=== PATIENT | male | born 1955 | race Two or more races ===

== ENCOUNTER 2019-02-21 12:26 | Emergency (ER) | payer OTHER, MEDICAID ==
[~2019-02-21] VITALS: Ht 165.1 cm; Wt 63.5 kg
[~2019-02-21 12:26] MED LIST: FERR-20 PO; KEP500T PO; METF-370 PO
[2019-02-21 13:37] LABS: Basophils # (auto) 0.2 uL; Basophils % (auto) 1.3 % (0.0-2.0); Eosinophils # (auto) 0.2 uL; Hemoglobin 10.8 g/dL (13.5-17.5); Lymphocytes # (auto) 2.3 uL; Monocytes # (auto) 0.7 uL; Neutrophils # (auto) 8.7 uL; Nucleated Red Blood Cells % 0.1 %; Red Cell Distribution Width 18.2 % (11.8-14.3)
[2019-02-21 13:38] LABS: Eosinophils % (auto) 1.3 % (0.0-7.0); Lymphocytes % (auto) 18.9 % (10.0-50.0); Mean Corpuscular Hemoglobin 23.7 pg (28.0-32.0); Mean Corpuscular Hgb Conc. 32.6 g/dL (32.0-36.0); Mean Corpuscular Volume 72.7 fL (80.0-100.0); Monocytes % (auto) 5.6 % (0.0-12.0); Neutrophils % (auto) 72.9 % (37.0-80.0); Red Blood Cells 4.54 10^6/uL (4.5-5.90); White Blood Cell 11.9 10^3/uL (4.4-10.8)
[2019-02-21 13:57] LABS: Albumin 2.8 g/dL (3.4-5.0); Calcium 9.2 mg/dL (8.5-10.1); Potassium 4.4 mmol/L (3.5-5.1)
[2019-02-21 13:59] LABS: INR 0.97 (0.9-1.15); Partial Thromboplastin Time 28.4 sec (23.64-32.05)
[2019-02-21 14:00] LABS: BUN/Creatinine Ratio 27.9; Bilirubin, Total 0.4 mg/dL (0.2-1.0); Total Protein 9.5 g/dL (6.4-8.2)
[2019-02-21 15:00] VITALS: BP 112/54
[2019-02-21 15:02] LABS: Platelet Count (auto) 592 10^3/uL (140-450)
== END 2019-02-21 15:43 | disposition home or self-care (01) ==
LOC: ER 12:31
DX: T82.594A Other mechanical complication of infusion catheter, initial encounter (principal); Z88.0 Allergy status to penicillin; Z79.899 Other long term (current) drug therapy; Z79.84 Long term (current) use of oral hypoglycemic drugs; E11.9 Type 2 diabetes mellitus without complications; I10 Essential (primary) hypertension; Y84.8 Other medical procedures as the cause of abnormal reaction of the patient, or of later complication, without mention of misadventure at the time of the procedure; Y82.8 Other medical devices associated with adverse incidents; Y92.89 Other specified places as the place of occurrence of the external cause
CPT/HCPCS: 36415; 71045; 80053; 85025; 85610; 85730

== ENCOUNTER 2019-11-12 11:52 | Inpatient (IN) | payer OTHER, MEDICAID ==
[~2019-11-12] VITALS: Ht 162.6 cm; Wt 79.4 kg
[2019-11-12] MEDS ORDERED: SODIUM CHLORIDE 0.9% 1,000 ML IV ONE ×2 (12:35)
[2019-11-12] MEDS ORDERED: VANCOMYCIN 1GM/250ML 250 ML IV ONE (12:45)
[2019-11-12 12:46] LABS: Basophils # (auto) 0.2 10 ^3/uL (0-0.2); Basophils % (auto) 1.8 % (0.0-2.0); Eosinophils # (auto) 0.2 10 ^3/uL (0-0.8)
[2019-11-12 12:48] LABS: Eosinophils % (auto) 1.7 % (0.0-7.0); Hematocrit 27.3 % (41.0-53.0); Hemoglobin 8.2 g/dL (13.5-17.5); Lymphocytes # (auto) 1.2 10 ^3/uL (0.4-5.4); Lymphocytes % (auto) 10.3 % (10.0-50.0); Mean Corpuscular Hemoglobin 21.1 pg (28.0-32.0); Mean Corpuscular Hgb Conc. 30.2 g/dL (32.0-36.0); Monocytes # (auto) 0.7 10 ^3/uL (0-1.3); Monocytes % (auto) 6.3 % (0.0-12.0); Neutrophils # (auto) 9.2 10 ^3/uL (1.6-8.6); Neutrophils % (auto) 79.9 % (37.0-80.0); White Blood Cell 11.5 10^3/uL (4.4-10.8)
[2019-11-12 12:50] LABS: Red Cell Distribution Width 21.1 % (11.8-14.3)
[2019-11-12] MEDS ORDERED: IOHEXOL 300 MG/ML 100ML BOTTLE IJ ONE (12:50)
[2019-11-12 12:52] LABS: Urine Bacteria NONE SEEN /hpf (None Seen); Urine Blood 1+ /uL (Negative); Urine Specific Gravity 1.018 (1.001-1.035); Urine WBC 1040 /hpf (0 - 3); Urine WBC Clumps PRESENT /hpf (None Seen)
[2019-11-12 12:54] LABS: Platelet Count (auto) 777 10^3/uL (140-450)
[2019-11-12 13:01] LABS: INR 1.12 (0.9-1.15); Partial Thromboplastin Time 30.1 sec (23.64-32.05)
[2019-11-12 13:04] LABS: Chloride 107 mmol/L (98-107); Potassium 4.6 mmol/L (3.5-5.1); Sodium 136 mmol/L (136-145)
[2019-11-12 13:13] LABS: Alanine Aminotransferase 12 U/L (16-61); Albumin 2.2 g/dL (3.4-5.0); Alkaline Phosphatase 120 U/L (45-117); Anion Gap 8 (5-15); Aspartate Aminotransferase 12 U/L (15-37); BUN/Creatinine Ratio 17.5; Bilirubin, Total 0.3 mg/dL (0.2-1.0); Blood Urea Nitrogen 17 mg/dL (7-18); Calcium 8.6 mg/dL (8.5-10.1); Carbon Dioxide 21 mmol/L (21-32); GFR African American 100 mL/min; GFR Non-African American 83 mL/min; Glucose 151 mg/dL (74-106); Total Protein 8.6 g/dL (6.4-8.2)
[2019-11-12 13:49] LABS: Lactic Acid w/Reflex 2.8 mmol/L (0.4-2.0)
[2019-11-12] MEDS ORDERED: MORPHINE SULF INJ 2 MG/ML SYRINGE 1ML IV PRN ×3 (14:15→14:45)
[2019-11-12] MEDS ORDERED: NITROGLYCERIN 0.4 MG SL TAB SL PRN ×2 (14:15→14:45)
[2019-11-12] MEDS ORDERED: ONDANSETRON HCL 4 MG/2 ML VIAL IV PRN (14:45)
[2019-11-12] MEDS ORDERED: DOCUSATE SOD 100 MG CAP PO PRN (14:45)
[2019-11-12] MEDS ORDERED: ALUM & MAG HYDROX-SIMETH LIQ(MAALOX) 30 ML PO PRN (14:45)
[2019-11-12] MEDS ORDERED: TEMAZEPAM 15 MG CAP PO PRN (14:45)
[2019-11-12] MEDS ORDERED: HYDROcodone-ACET 5/325MG TAB PO PRN (14:45)
[2019-11-12] MEDS ORDERED: VANCOMYCIN PER PHARMACY 0 MG IV SCH (14:45)
[2019-11-12] MEDS ORDERED: DEXTROSE (50%) 50ML SYRG IV PRN (15:00)
[2019-11-12] MEDS ORDERED: FAMOTIDINE 20 MG TAB PO ONE (15:15)
--- NOTE | 2019-11-12 15:20 | NUR ---
Telemetry admit from ER BATSHEVA GARCÍA admitted to Telemetry unit after SBAR received. Patient oriented to Hue Lind RN, unit, room, bed, and unit policies regarding patient care and visiting hours. Patient now on continuous telemetry monitoring, tele box # 26 and telemetry reading on arrival to unit is 81 SR. Patient placed on standby bedside oxygen if needed, weighed by bed scale and encouraged to call if he needs something. All questions and concerns addressed, patient verbalized understanding. Note: Patient is paraplegic, oriented x4, unable to move right upper extremity, came in with colostomy, came in with suprapubic catheter. Patient has extensive ulcer/wounds on his sacral and buttocks area. Left knee with wound, bilateral lower extremities wrapped with gauze (done at ER). Patient has his own wheelchair from home. Patient stated he's unable to get up by himself, his [id number]-[id number]-bez helps him at home.
[2019-11-12 15:30] VITALS: BP 136/71
[2019-11-12] MEDS: SODIUM CHLORIDE 0.9% 1,000 ML IV SCH (15:30)
--- NOTE | 2019-11-12 15:47 | NUR ---
AIR MATTRESS: Air mattress ordered at [facility],Reference # [id number]; ETA 11/12/19 @5200, Call [facility] if need to follow up at [phone] Addendum: 11/12/19 at 1548 by Dea Decker RN Amended: Links added.
--- NOTE | 2019-11-12 16:00 | NUR ---
Photos taken of the sacral/buttock area, left knee. Wound culture swab done. Specimen sent to Laboratory.
--- NOTE | 2019-11-12 16:30 | NUR ---
Qamar Feliz and I transferred the patient to the bed with specialty mattress.
[2019-11-12 16:45] VITALS: BP 136/71
[2019-11-12] MEDS: InsuLIN REG 1unit/0.01ml Soln (100units/ml) SC SCH ×2 (17:00→22:00)
--- NOTE | 2019-11-12 17:20 | NUR ---
Gkryxzfg-oq-bwv Tracey ([phone]; Password: "Douglas") called. Son Rene ([phone]).
[2019-11-12] MEDS: FERROUS SULFATE 325 MG TAB PO SCH (17:43)
[2019-11-12] MEDS: ACCU-CHEK COMFORT CURVE STRIP VI SCH ×2 (17:44→22:29)
[2019-11-12] MEDS: MEROPENEM 1GM IVPB 100 ML IV SCH (17:49)
[2019-11-12] MEDS: FAMOTIDINE 20 MG TAB PO SCH (21:33)
[2019-11-12] MEDS: levETIRAcetam 500 MG TAB PO SCH (21:34)
[2019-11-12 21:51] VITALS: BP 109/51
[2019-11-13] VITALS (8 sets, daily range): BP systolic 92–123; BP diastolic 50–63
--- NOTE | 2019-11-13 00:26 | NUR ---
11/12/20191929. PATIENT SEEN ON RECEIVING REPORT. WAS AWAKE ANMD ALERT AND DENIED PAIN. SUPRAPUBIC ANDERS CATHETER IN PLACE WITH 200 ML YELLOW URINE IN BAG HANGING BELOW FREELY. COLOSTOMY BAG TO THE LEFT FLANK WAS NOTED WITH BROWN LIQUID STOOL. DRESSING CLEAR AND DRY. MULTIPLE SKIN DRESSINGS TO BOTH LEGS , FEET AND SACRAL AREA DRY AND INTACT. IV FLUID INFUSING WELL. IV SITE CLEAR AND DRY.
[2019-11-13] MEDS: SODIUM CHLORIDE 0.9% 1,000 ML IV SCH ×3 (00:53→21:47)
[2019-11-13] MEDS: MEROPENEM 1GM IVPB 100 ML IV SCH ×4 (02:23→18:55)
--- NOTE | 2019-11-13 02:52 | NUR ---
PATIENT SLEEPING AT THIS TIME.
[2019-11-13 05:48] LABS: Hematocrit 21.9 % (41.0-53.0); Mean Corpuscular Hemoglobin 22.1 pg (28.0-32.0); Mean Corpuscular Hgb Conc. 32.1 g/dL (32.0-36.0); Platelet Count (auto) 674 10^3/uL (140-450); Red Blood Cells 3.17 10^6/uL (4.5-5.90); White Blood Cell 7.3 10^3/uL (4.4-10.8)
[2019-11-13] MEDS: VANCOMYCIN 1GM/250ML 250 ML IV SCH ×2 (05:50→23:30)
[2019-11-13 05:53] LABS: Band Neutrophils % (manual) 0; Basophils % (manual) 0 (0.0-2.0); Blast Cells 0; Metamyelocytes % 0; Myelocytes % 0; Promyelocytes % 0; Reactive Lymphocytes 0
[2019-11-13 06:00] LABS: % Iron Saturation 9.5 % (20-55)
[2019-11-13 06:04] LABS: INR 1.16 (0.9-1.15); Partial Thromboplastin Time 29.9 sec (23.64-32.05)
[2019-11-13 06:13] LABS: Cholesterol 109 mg/dL (< 200); HDL Cholesterol 29 mg/dL (40-59); LDL Cholesterol 68 mg/dL (< 100); Triglycerides 87 mg/dL (< 150)
[2019-11-13 06:21] LABS: Albumin 1.9 g/dL (3.4-5.0); BUN/Creatinine Ratio 18.7; Bilirubin, Total 0.3 mg/dL (0.2-1.0); CRP High Sensitivity 9.8 mg/dL (< 0.3); Calcium 8.3 mg/dL (8.5-10.1); Magnesium 1.6 mg/dL (1.6-2.6); Phosphorus 2.6 mg/dL (2.5-4.90); Total Protein 7.3 g/dL (6.4-8.2)
[2019-11-13] MEDS: ACCU-CHEK COMFORT CURVE STRIP VI SCH ×4 (06:27→21:48)
[2019-11-13] MEDS: InsuLIN REG 1unit/0.01ml Soln (100units/ml) SC SCH ×4 (06:28→22:03)
[2019-11-13 06:29] LABS: Eosinophils % (manual) 1 (0-7); Lymphocytes % (manual) 20 (10.0-50.0); Monocytes % (manual) 5 (0-12)
--- NOTE | 2019-11-13 07:07 | NUR ---
0553. CRITICAL LAB CALLED NEHA GARCÍA FROM THE LAB. HEMOGLOBIN 7.0
--- NOTE | 2019-11-13 07:10 | NUR ---
0625. DR LUCERO CALLED BACK. ORDERED TO REPEAT HEMOGLOBIN IN 6 HOURS.
--- NOTE | 2019-11-13 08:30 | NUR ---
Patient in bed, awake, oriented x4. No acute distress noted. With suprapubic catheter, colostomy.
[2019-11-13] MEDS: ENOXAPARIN SOD 40 MG/0.4 ML SYRINGE SC SCH (09:07)
[2019-11-13] MEDS: FAMOTIDINE 20 MG TAB PO SCH ×2 (09:11→21:48)
[2019-11-13] MEDS: FERROUS SULFATE 325 MG TAB PO SCH ×2 (09:11→18:25)
[2019-11-13] MEDS: levETIRAcetam 500 MG TAB PO SCH ×2 (09:12→21:47)
--- NOTE | 2019-11-13 09:22 | NUR ---
Hgb = 7.0*L. Fito held. Will inform the MD.
--- NOTE | 2019-11-13 10:00 | NUR ---
Dr. Rios at bedside. MD is aware of the critically low Hemoglobin level. Dr. Rios spoke with the patient. Wound care nurse Rashmi to see the patient today.
--- NOTE | 2019-11-13 11:00 | NUR ---
WOUND CARE NOTE: IN TO SEE PATIENT AT THIS TIME PER WOUND CARE CONSULT REQUEST. PATIENT WAS ADMITTED TO [facility] WITH DIAGNOSIS OF SEPSIS, UTI, PNA. CURRENT PINKY SCORE IS ASSESSED AT 10. PATIENT NOTED UPON PRESENTATION TO THE ER TO HAVE MULTIPLE WOUNDS. WOUND PHOTOS TAKEN WHILE PATIENT IN ER, UPON ADMIT BY BEDSIDE NURSE, AND AGAIN AT THIS TIME FOR REFERENCE. HE IS CURRENTLY RESTING ON SPECIALTY AIR BED PER PROTOCOL. 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 HE ALSO HAS SCARS NOTED TO LEFT KNEE AND LEFT HEEL. SCARS WERE LEFT OPEN TO AIR. CLEANSED ALL OPEN WOUNDS WITH WOUND CLEANSER, PATTED DRY WITH STERILE GAUZE. APPLIED THERAHONEY INTO ALL OPEN WOUND BED AREAS. PACKED ALGINATE IN ALL WOUND CAVITIES, COVERED WITH OPTIFOAM GENTLE DRESSINGS. ALL WOUND STATS CAN BE FOUND WITHIN WOUND ASSESSMENT LINKED TO THIS NOTE. OF NOTE, WOUND CULTURES WERE TAKEN UPON ADMIT, SENT OFF TO LAB FOR PROCESSING. HE HAS RECEIVED WOUND CARE IN THE PAST AT [facility]. RECOMMEND: FREQUENT TURN SCHEDULE Q 2 HOURS, PRN CONDITION PERMITS, WITH PRESSURE REDISTRIBUTION USING PILLOWS/WEDGES, SPECIALTY AIR BED, SURGICAL CONSULT, DIETARY CONSULT, DAILY/PRN DRESSING CHANGES, SKIN/WOUND CARE PLAN, CONTINUED MONITORING BY WOUND CARE TEAM. Addendum: 11/13/19 at 1714 by Mary Beth Millan RN Amended: Links added.
--- NOTE | 2019-11-13 11:10 | NUR ---
Downgraded to Med-Surg as ordered. Tele pack sent back to ICU.
[2019-11-13 13:39] LABS: Basophils # (auto) 0.1 10 ^3/uL (0-0.2); Eosinophils # (auto) 0.2 10 ^3/uL (0-0.8); Lymphocytes % (auto) 12.8 % (10.0-50.0)
[2019-11-13 13:40] LABS: Basophils % (auto) 1.4 % (0.0-2.0); Hematocrit 21.2 % (41.0-53.0); Mean Corpuscular Volume 68.8 fL (80.0-100.0); Monocytes # (auto) 0.6 10 ^3/uL (0-1.3); Monocytes % (auto) 7.9 % (0.0-12.0); Neutrophils % (auto) 74.9 % (37.0-80.0); Nucleated Red Blood Cells % 0.1 %; Platelet Count (auto) 639 10^3/uL (140-450); Red Blood Cells 3.08 10^6/uL (4.5-5.90)
[2019-11-13 13:47] LABS: Red Cell Distribution Width 20.9 % (11.8-14.3)
[2019-11-13 13:50] LABS: Hemoglobin 6.8 g/dL (13.5-17.5)
--- NOTE | 2019-11-13 14:00 | NUR ---
Hgb = 6.8*L. Dr. Rios ordered one unit of packed RBCs.
--- NOTE | 2019-11-13 17:10 | NUR ---
BP = 100/50, Heart rate = 89, RR = 16, Temp = 97.3 F, O2 Sat = 94% on room air.
--- NOTE | 2019-11-13 17:16 | NUR ---
Started one unit or packed RBCs as ordered.
--- NOTE | 2019-11-13 17:25 | NUR ---
T = 97.6 F, BP = 105/67, Heart rate = 82, RR = 17, O2 Sat = 95% on room air. No blood transfusion reaction noted.
--- NOTE | 2019-11-13 18:15 | NUR ---
Called Pharmacy that Meropenem is not available.
--- NOTE | 2019-11-13 19:00 | NUR ---
Blood transfusion still ongoing at this time.
--- NOTE | 2019-11-13 19:20 | NUR ---
Report given to operation shift supervisor JAKOB Nunn that one unit of packed RBCs still transfusing at this time. JAKOB Nunn to note the time the transfusion ended and note if there's a blood transfusion reaction.
--- NOTE | 2019-11-13 19:30 | NUR ---
Called Pharmacy again that Meropenem IV is not available. JAKOB Nunn went to [facility], medication not sent by the Pharmacy.
--- NOTE | 2019-11-13 19:33 | NUR ---
PATIENT ON BLOOD TRANSFUSION OVER THE PAST 2 HOURS 15 MINUTES. PATIENT IS TOLERATION THE TRANSFUSION. VITAL SIGNS AT 1900 WITHIN NORMAL LIMITS.
--- NOTE | 2019-11-13 20:23 | NUR ---
0-11/13/2019. 2004. BLOOD TRANSFUSION COMPLETED AT THIS TIME. NO TRANSFUSION REACTION NOTED.
[2019-11-14] VITALS (7 sets, daily range): BP systolic 111–136; BP diastolic 53–64
[2019-11-14] MEDS: MEROPENEM 1GM IVPB 100 ML IV SCH ×3 (01:50→20:29)
--- NOTE | 2019-11-14 06:12 | NUR ---
0540. COLOSTOMY BAG EMPTIED. BED BATH GIVEN. LINENS CHANGED.
[2019-11-14] MEDS: InsuLIN REG 1unit/0.01ml Soln (100units/ml) SC SCH ×4 (06:31→22:00)
[2019-11-14] MEDS: ACCU-CHEK COMFORT CURVE STRIP VI SCH ×4 (06:31→22:01)
[2019-11-14] MEDS: SODIUM CHLORIDE 0.9% 1,000 ML IV SCH (06:33)
[2019-11-14 06:44] LABS: Basophils # (auto) 0.1 10 ^3/uL (0-0.2); Hematocrit 26.9 % (41.0-53.0); Hemoglobin 8.6 g/dL (13.5-17.5); Lymphocytes # (auto) 0.9 10 ^3/uL (0.4-5.4); Monocytes # (auto) 0.7 10 ^3/uL (0-1.3)
[2019-11-14 06:47] LABS: Basophils % (auto) 1.5 % (0.0-2.0); Eosinophils # (auto) 0.2 10 ^3/uL (0-0.8); Eosinophils % (auto) 3.5 % (0.0-7.0); Lymphocytes % (auto) 13.3 % (10.0-50.0); Mean Corpuscular Hemoglobin 23.2 pg (28.0-32.0); Mean Corpuscular Hgb Conc. 32.2 g/dL (32.0-36.0); Mean Corpuscular Volume 72.1 fL (80.0-100.0); Monocytes % (auto) 10.4 % (0.0-12.0); Neutrophils # (auto) 4.7 10 ^3/uL (1.6-8.6); Neutrophils % (auto) 71.3 % (37.0-80.0); Nucleated Red Blood Cells % 0.2 %; Platelet Count (auto) 623 10^3/uL (140-450); Red Blood Cells 3.73 10^6/uL (4.5-5.90); White Blood Cell 6.6 10^3/uL (4.4-10.8)
[2019-11-14 06:50] LABS: Red Cell Distribution Width 23.1 % (11.8-14.3)
[2019-11-14 07:04] LABS: Potassium 3.7 mmol/L (3.5-5.1)
[2019-11-14] MEDS: FAMOTIDINE 20 MG TAB PO SCH ×2 (09:36→22:00)
[2019-11-14] MEDS: FERROUS SULFATE 325 MG TAB PO SCH ×2 (09:36→18:25)
[2019-11-14] MEDS: levETIRAcetam 500 MG TAB PO SCH ×2 (09:36→22:00)
[2019-11-14] MEDS: ENOXAPARIN SOD 40 MG/0.4 ML SYRINGE SC SCH (09:37)
--- NOTE | 2019-11-14 14:21 | NUR ---
PICC line placement Patient educated on need for PICC line placement. All risks and benefits explained and all questions and concerns addressed prior to procedure. Noted past medical history and allergies with no contraindications. INR and Plt counts within acceptable range. 4 fr PICC line inserted via right basilic vein using [employer] [employer] US and Tip Location System. Sterile technique with maximum barrier precautions utilized. Blood return obtained from lumen and flushed easily with NS using proper technique. PICC secured with Stat-lock; biodisc and occlusive dressing applied. Stat portable chest x-ray obtained for PICC tip placement. *Baseline Arm Circumference 23cm. Internal length 40 cm. External length 0. PICC lot #[id number]
[2019-11-14] MEDS ORDERED: LIDOCAINE 1% (LOCAL ANESTH.) PF 5ml SDV ID ONE (14:30)
--- NOTE | 2019-11-14 14:40 | NUR ---
Okay to use PICC line Xray completed and reviewed. Okay to use PICC line. Nathaniel ROBERT notified.
[2019-11-14] MEDS: VANCOMYCIN 1GM/250ML 250 ML IV SCH (17:56)
--- NOTE | 2019-11-14 19:35 | NUR ---
Opening Shift Note Assumed care of patient, awake and alert x4. No S/S of distress/SOB or pain. Call light is within reach, side rails up x2, bed is in the lowest position. Suprapubic catheter in place and draining yellow urine. Colostomy bag to the LUQ. Dressings to the sacrum and bilateral lower extremities are C/D/I. Instructed on POC and to call for assist PRN, will continue to monitor for changes Q1hr and PRN.
[2019-11-14] MEDS: SODIUM CHLOR 0.9% PF (SALINE LOCK) 10ML VIAL/SYR IV SCH (22:01)
--- NOTE | 2019-11-14 22:06 | NUR ---
2200 INSULIN REFUSAL Patient's blood sugar was 133, he stated that his blood sugar will drop at night and he does not need the 2 units of insulin for 2200. Will continue to monitor.
[2019-11-15] MEDS: MEROPENEM 1GM IVPB 100 ML IV SCH ×3 (01:58→18:25)
[2019-11-15 05:00] VITALS: BP 116/60
[2019-11-15] MEDS: InsuLIN REG 1unit/0.01ml Soln (100units/ml) SC SCH ×2 (06:33→22:00)
[2019-11-15] MEDS: ACCU-CHEK COMFORT CURVE STRIP VI SCH (06:34)
--- NOTE | 2019-11-15 06:39 | NUR ---
Colostomy bag emptied, patient repositioned for comfort, fall precautions are in place, call light is within reach.
--- NOTE | 2019-11-15 08:10 | NUR ---
Patient in bed, awake, no acute distress noted. On Suprapubic catheter draining clear, yellowish urine. On Colostomy bag. On specialty mattress.
[2019-11-15] MEDS: FERROUS SULFATE 325 MG TAB PO SCH ×2 (08:13→18:25)
[2019-11-15 09:00] VITALS: BP 116/58
[2019-11-15] MEDS: ENOXAPARIN SOD 40 MG/0.4 ML SYRINGE SC SCH (10:24)
[2019-11-15] MEDS: levETIRAcetam 500 MG TAB PO SCH ×2 (10:24→22:01)
[2019-11-15] MEDS: FAMOTIDINE 20 MG TAB PO SCH ×2 (10:24→22:01)
[2019-11-15] MEDS: SODIUM CHLOR 0.9% PF (SALINE LOCK) 10ML VIAL/SYR IV SCH ×2 (10:25→22:04)
[2019-11-15] MEDS: VANCOMYCIN 1GM/250ML 250 ML IV SCH (11:24)
--- NOTE | 2019-11-15 11:25 | NUR ---
PREM Lynch and I repositioned the patient.
--- NOTE | 2019-11-15 11:30 | NUR ---
Emptied the Colostomy pouch. Large amount of soft, brownish/greenish stools collected.
[2019-11-15 13:00] VITALS: BP 111/61
--- NOTE | 2019-11-15 14:15 | NUR ---
Nutrition Assessment Notes Please refer to link for full assessment notes. Est Energy needs: 5776-1285 kcals (17-20 kcal/kgBW) Est Protein needs: 97-121 gms/day (1.2-1.5 gm/kgBW) d/t pt wounds Will continue to monitor and reassess prn. Addendum: 11/15/19 at [address] Amended: Links added.
--- NOTE | 2019-11-15 14:53 | NUR ---
assessment Patient is a 64 year old male who is alert and oriented. Prior to admission patient lived home with family and needed assistance. 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 Per patient he has a wheelchair and hospital bed for home use. Patient is on service with [facility]. Patient will need a resumption order on discharge. Patient has no safety concerns regarding returning home on discharge. I informed patient he has a right to speak to a vp digital marketing social media and crm regarding all care. I informed patient he has a right to participate in any and all discharge planning. Patient has a POA and advanced directive. Patient verbalized understanding and agreed to discharge plan. Addendum: 11/15/19 at 1501 by Gladys WARNER Amended: Links added.
[2019-11-15 17:00] VITALS: BP 118/62
--- NOTE | 2019-11-15 17:00 | NUR ---
Patient denies pain.
--- NOTE | 2019-11-15 18:10 | NUR ---
Patient eating dinner at this time.
--- NOTE | 2019-11-15 19:20 | NUR ---
Opening Shift Note Received report from Hue ROBERT. Assumed care of patient, awake and alert. No S/S of distress/SOB or pain. Instructed on POC and to call for assist PRN. Fall precaution measures in place, will continue to monitor for changes Q1hr and PRN.
[2019-11-15 22:00] VITALS: BP 130/58
--- NOTE | 2019-11-16 02:00 | NUR ---
Emptied the Colostomy pouch with moderate amount of soft, brownish/greenish stools collected.
[2019-11-16] MEDS: MEROPENEM 1GM IVPB 100 ML IV SCH ×2 (02:30→10:01)
[2019-11-16 05:00] VITALS: BP 135/68
[2019-11-16] MEDS: VANCOMYCIN 1GM/250ML 250 ML IV SCH (05:46)
--- NOTE | 2019-11-16 07:45 | NUR ---
Patient in bed, awake, oriented x4, no acute distress noted. On Colostomy. On Delgado catheter. On specialty mattress.
[2019-11-16] MEDS: FERROUS SULFATE 325 MG TAB PO SCH ×2 (08:40→17:07)
[2019-11-16 09:00] VITALS: BP 106/58
--- NOTE | 2019-11-16 09:40 | NUR ---
Changed the Opti foam wound dressing on the sacral, hip, buttock areas, bilateral lower legs. Cleaned the wounds with wound spray, pat dry with gauze, applied Opti foam with Thera honey. Patient able to tolerate it. PREM Lynch and I repositioned the patient.
[2019-11-16] MEDS: ENOXAPARIN SOD 40 MG/0.4 ML SYRINGE SC SCH (10:01)
[2019-11-16] MEDS: FAMOTIDINE 20 MG TAB PO SCH ×2 (10:01→21:21)
[2019-11-16] MEDS: SODIUM CHLOR 0.9% PF (SALINE LOCK) 10ML VIAL/SYR IV SCH ×2 (10:01→21:40)
[2019-11-16] MEDS: levETIRAcetam 500 MG TAB PO SCH ×2 (10:04→21:22)
[2019-11-16 13:00] VITALS: BP 120/59
--- NOTE | 2019-11-16 14:20 | NUR ---
Nutrition Assessment Notes Please refer to link for full assessment notes. Est Energy needs: 4676-0723 kcals (17-20 kcal/kgBW) Est Protein needs: 64-71 gms/day (1.0-1.1 gm/kgBW) Will continue to monitor and reassess prn. Addendum: 11/16/19 at [address] Amended: Links added.
--- NOTE | 2019-11-16 15:00 | NUR ---
Pharmacist to call Dr. Trinh regarding Meropenem IV.
[2019-11-16] MEDS: cefTAZidime 2GM/NS 50 ML IV SCH ×2 (15:53→21:21)
[2019-11-16 17:00] VITALS: BP 125/50
--- NOTE | 2019-11-16 19:25 | NUR ---
Opening Shift Note Assumed care of patient, AOx4. Fall and safety precautions in place. Call light within reach and able to use. No S/S of distress/SOB or pain. Instructed on POC and to call for assist PRN, patient verbalized understanding and in agreement. Will continue to monitor for changes Q1hr and PRN.
[2019-11-16] MEDS: InsuLIN REG 1unit/0.01ml Soln (100units/ml) SC SCH (21:40)
[2019-11-16 21:52] VITALS: BP 117/53
[2019-11-17] MEDS: VANCOMYCIN 1GM/250ML 250 ML IV SCH (00:16)
[2019-11-17 05:00] VITALS: BP 106/61
[2019-11-17] MEDS: cefTAZidime 2GM/NS 50 ML IV SCH ×3 (05:26→21:41)
[2019-11-17 06:32] LABS: Basophils # (auto) 0.1 10 ^3/uL (0-0.2); Basophils % (auto) 1.6 % (0.0-2.0); Eosinophils # (auto) 0.3 10 ^3/uL (0-0.8); Eosinophils % (auto) 5.4 % (0.0-7.0); Hematocrit 26.3 % (41.0-53.0); Hemoglobin 8.9 g/dL (13.5-17.5); Lymphocytes # (auto) 1.2 10 ^3/uL (0.4-5.4); Lymphocytes % (auto) 22.6 % (10.0-50.0); Mean Corpuscular Hemoglobin 24.1 pg (28.0-32.0); Mean Corpuscular Hgb Conc. 33.6 g/dL (32.0-36.0); Mean Corpuscular Volume 71.7 fL (80.0-100.0); Monocytes # (auto) 0.5 10 ^3/uL (0-1.3); Monocytes % (auto) 8.9 % (0.0-12.0); Neutrophils # (auto) 3.4 10 ^3/uL (1.6-8.6); Neutrophils % (auto) 61.5 % (37.0-80.0); Nucleated Red Blood Cells % 0.2 %; Platelet Count (auto) 595 10^3/uL (140-450); Red Blood Cells 3.67 10^6/uL (4.5-5.90); White Blood Cell 5.5 10^3/uL (4.4-10.8)
[2019-11-17 06:33] LABS: Red Cell Distribution Width 22.9 % (11.8-14.3)
[2019-11-17 06:51] LABS: Calcium 8.3 mg/dL (8.5-10.1); Magnesium 1.9 mg/dL (1.6-2.6); Potassium 3.9 mmol/L (3.5-5.1)
[2019-11-17 06:55] LABS: Bilirubin, Total 0.3 mg/dL (0.2-1.0); Total Protein 7.3 g/dL (6.4-8.2)
--- NOTE | 2019-11-17 07:58 | NUR ---
Patient eating breakfast at this time.
[2019-11-17] MEDS: FERROUS SULFATE 325 MG TAB PO SCH ×2 (07:59→17:53)
[2019-11-17 08:15] VITALS: BP 114/58
[2019-11-17] MEDS: SODIUM CHLOR 0.9% PF (SALINE LOCK) 10ML VIAL/SYR IV SCH ×2 (10:24→21:41)
[2019-11-17] MEDS: levETIRAcetam 500 MG TAB PO SCH ×2 (10:25→21:41)
[2019-11-17] MEDS: FAMOTIDINE 20 MG TAB PO SCH ×2 (10:25→21:40)
[2019-11-17] MEDS: ENOXAPARIN SOD 40 MG/0.4 ML SYRINGE SC SCH (10:25)
--- NOTE | 2019-11-17 10:56 | NUR ---
Dr. Ziggy I. at bedside.
[2019-11-17 12:30] VITALS: BP 125/58
--- NOTE | 2019-11-17 14:10 | NUR ---
Called Pharmacy that Fortaz IV is not yet received.
--- NOTE | 2019-11-17 14:18 | NUR ---
Dr. Trinh made aware that patient has Bedtime sliding scale for Insulin but no order for Accu check. ordered Accu check.
[2019-11-17 17:17] VITALS: BP 120/63
--- NOTE | 2019-11-17 19:30 | NUR ---
Opening Shift Note Assumed care of patient, AOx4. Fall, seizure, and safety precautions in place. No S/S of distress/SOB or pain. Call light within reach and able to use. Instructed on POC and to call for assist PRN, patient verbalized understanding and in agreement. Will continue to monitor for changes Q1hr and PRN.
[2019-11-17] MEDS: ACCU-CHEK COMFORT CURVE STRIP VI SCH (21:41)
[2019-11-17 22:00] VITALS: BP 121/59
[2019-11-17] MEDS: InsuLIN REG 1unit/0.01ml Soln (100units/ml) SC SCH (22:11)
[2019-11-18] MEDS: cefTAZidime 2GM/NS 50 ML IV SCH (05:38)
[2019-11-18 06:00] VITALS: BP 115/66
[2019-11-18] MEDS: FAMOTIDINE 20 MG TAB PO SCH ×2 (07:58→21:11)
[2019-11-18] MEDS: FERROUS SULFATE 325 MG TAB PO SCH ×2 (07:58→18:00)
[2019-11-18] MEDS: SODIUM CHLOR 0.9% PF (SALINE LOCK) 10ML VIAL/SYR IV SCH ×2 (07:59→21:10)
[2019-11-18] MEDS: levETIRAcetam 500 MG TAB PO SCH ×2 (07:59→21:11)
[2019-11-18] MEDS: ENOXAPARIN SOD 40 MG/0.4 ML SYRINGE SC SCH (08:00)
--- NOTE | 2019-11-18 10:48 | NUR ---
Dr. Melendrez at bed side to see pt, doctor discussed the plan of care with pt.
[2019-11-18] MEDS ORDERED: cefTRIAXone 1GM/50ML D5W 50 ML IV ONE (11:00)
[2019-11-18 13:00] VITALS: BP 123/67
[2019-11-18] MEDS ORDERED: CIPROFLOXACIN 400MG/200ML 200 ML IV SCH (14:00)
--- NOTE | 2019-11-18 14:00 | NUR ---
Dressing change cleaned wounds to lt and rt hip, lt and rt ischium, sacrum, with wound cleanser, applied thera-honey, packed with algenate dressing, cpvered with optifoam dressing, lt and rt lateral lower legs wounds cleaned with wound cleanser, applied thera-honey and covered with optifoam and secured with kerlix. lt lateral ankle wound cleaned with wound cleanser, applied thera-honey, covered with optifoam dressing.
[2019-11-18 17:00] VITALS: BP 131/72
--- NOTE | 2019-11-18 20:00 | NUR ---
Received pt resting in bed, call light within reach, pt turned and reposition, pt denies any pain or discomfort at this time, will continue to monitor pt.
[2019-11-18] MEDS: CIPROFLOXACIN HCL 500 MG TAB PO SCH (21:11)
[2019-11-18] MEDS: InsuLIN REG 1unit/0.01ml Soln (100units/ml) SC SCH (21:12)
[2019-11-18] MEDS: ACCU-CHEK COMFORT CURVE STRIP VI SCH (21:12)
[2019-11-18 22:00] VITALS: BP 131/59
[2019-11-19 05:00] VITALS: BP 117/58
[2019-11-19 08:00] VITALS: BP 127/69
--- NOTE | 2019-11-19 08:43 | NUR ---
I faxed home IV ATB order to [facility].
[2019-11-19 09:00] VITALS: BP 127/69
[2019-11-19] MEDS ORDERED: cefTRIAXone 1GM/50ML D5W 50 ML IV SCH (09:00)
[2019-11-19] MEDS: CIPROFLOXACIN HCL 500 MG TAB PO SCH (09:44)
[2019-11-19] MEDS: FERROUS SULFATE 325 MG TAB PO SCH (09:44)
[2019-11-19] MEDS: FAMOTIDINE 20 MG TAB PO SCH (09:44)
[2019-11-19] MEDS: SODIUM CHLOR 0.9% PF (SALINE LOCK) 10ML VIAL/SYR IV SCH (09:45)
[2019-11-19] MEDS: levETIRAcetam 500 MG TAB PO SCH (09:45)
[2019-11-19] MEDS: ENOXAPARIN SOD 40 MG/0.4 ML SYRINGE SC SCH (09:47)
--- NOTE | 2019-11-19 11:02 | NUR ---
D/C Planning Per Social Service consult for home health IV abx withh IV Rocephin 1gm daily for 4 weeks and wound care. Patient stated his daughter in [place] who is also his caregiver can assist with IV abx. Patient is on service with [facility]. Informed patient Diabetes Manager Denisha will be faxing clinical information to [facility]. Faxed clinical information to [facility]. Per Holly with [facility] Ph: ) they will resume service within 24hrs upon d/c day. Obtain authorization from [facility] [id number].
--- NOTE | 2019-11-19 12:07 | NUR ---
I spoke with Catarina at [facility] [phone] and let her know that patient is discharging home today-she said they will deliver home IV ATB to patient's home between 7-10pm yaneight-she will call family right now regarding delivery-I provided her with contact information for daughter Tracey.
[2019-11-19 13:00] VITALS: BP 122/67
--- NOTE | 2019-11-19 13:13 | NUR ---
Faxed transportation form to [facility] requesting for a 15:00 excelsior picker time via [employer]. Per Kaitlynn with [facility] transportation has been arranged with [facility] transport Ph:( [phone] via [employer] between 16:00-16:30. Informed JAKOB Jordan.
[2019-11-19 15:40] VITALS: BP 127/69
--- NOTE | 2019-11-19 16:32 | NUR ---
WOUNDS CARE REMOVED ALL SOILED DRESSING, CLEANED WOUNDS WITH SALINE, PATTED DRY WITH STERILE GAUZES , APPLIED THERA HONEY, COVERED WOUNDS WITH OPTIFORM. WOUNDS PICTURE TAKEN. PT TOLERATED PROCEDURE WELL, WILL CONTINUE CARE.
--- NOTE | 2019-11-19 16:39 | NUR ---
Discharge instructions given as ordered. Encourage to follow up with PCP DR. GUZMAN as instructed, new prescription given to pt. All questions and concerns addressed. Patient verbalized understanding. Medication reconciliation form completed and copy given to patient. IV removed with catheter intact, keep Picc line as order for home IV Rocephin, IV rocephin will be delivered to pt's home [facility] Patient was picked up by [facility] with all personal belongings, accompanied by staff. No distress noted at time of departure.
== END 2019-11-19 17:00 | disposition home health service (06) | DRG 871 ==
LOC: ER 11:52 → TELE 11:53 → TELE-CENTR 15:20 → CENTRAL 11-13 11:14
PROVIDERS: ADMIT Hospitalist; ATTEND Internal Medicine
PROC: 30233N1 Transfusion of Nonautologous Red Blood Cells into Peripheral Vein, Percutaneous Approach (ICD-10-PCS; 2019-11-13)
PROC: 02HV33Z Insertion of Infusion Device into Superior Vena Cava, Percutaneous Approach (ICD-10-PCS; principal; 2019-11-14)
DX: A41.9 Sepsis, unspecified organism (principal); L89.224 Pressure ulcer of left hip, stage 4; R53.2 Functional quadriplegia; E43 Unspecified severe protein-calorie malnutrition; L89.214 Pressure ulcer of right hip, stage 4; L89.154 Pressure ulcer of sacral region, stage 4; L89.304 Pressure ulcer of unspecified buttock, stage 4; L89.894 Pressure ulcer of other site, stage 4; L03.116 Cellulitis of left lower limb; M86.9 Osteomyelitis, unspecified; N39.0 Urinary tract infection, site not specified; M86.68 Other chronic osteomyelitis, other site; D64.9 Anemia, unspecified; E11.69 Type 2 diabetes mellitus with other specified complication; I10 Essential (primary) hypertension; B96.1 Klebsiella pneumoniae [K. pneumoniae] as the cause of diseases classified elsewhere; G40.909 Epilepsy, unspecified, not intractable, without status epilepticus; Z68.30 Body mass index [BMI] 30.0-30.9, adult; Z88.0 Allergy status to penicillin; Z85.46 Personal history of malignant neoplasm of prostate; Z93.3 Colostomy status; Z98.2 Presence of cerebrospinal fluid drainage device
CPT/HCPCS: 36415; 36569; 71045; 72193; 73700; 80048; 80053; 80061; 80202; 81001; 82306; 82565; 82962; 83036; 83540; 83550; 83605; 83735; 83880; 84100; 84484; 85007; 85025; 85027; 85045; 85610; 85652; 85730; 86141; 86850; 86900; 86901; 86920; 87040; 87077; 87086; 87088; 87186; 87205; 93005; 96365; G0378; J0696; J0713; J1815; J2185

== ENCOUNTER 2020-04-24 20:09 | Emergency (ER) | payer OTHER, MEDICAID ==
[~2020-04-24] VITALS: Ht 162.6 cm; Wt 68.0 kg
[2020-04-24] MEDS ORDERED: SODIUM CHLORIDE 0.9% 1,000 ML IVB ONE (20:45)
[2020-04-24 22:12] LABS: Basophils # (auto) 0.1 10 ^3/uL (0-0.2); Basophils % (auto) 0.9 % (0.0-2.0); Eosinophils # (auto) 0.2 10 ^3/uL (0-0.8); Eosinophils % (auto) 1.2 % (0.0-7.0); Hematocrit 24.9 % (41.0-53.0); Lymphocytes # (auto) 0.8 10 ^3/uL (0.4-5.4); Lymphocytes % (auto) 6.5 % (10.0-50.0); Mean Corpuscular Hemoglobin 22.4 pg (28.0-32.0); Mean Corpuscular Hgb Conc. 32.1 g/dL (32.0-36.0); Mean Corpuscular Volume 69.8 fL (80.0-100.0); Monocytes % (auto) 7.6 % (0.0-12.0); Neutrophils # (auto) 10.9 10 ^3/uL (1.6-8.6); Neutrophils % (auto) 83.8 % (37.0-80.0); Nucleated Red Blood Cells % 0.1 %; Platelet Count (auto) 642 10^3/uL (140-450); Red Blood Cells 3.56 10^6/uL (4.5-5.90); Red Cell Distribution Width 19.7 % (11.8-14.3)
[2020-04-24 22:28] LABS: Albumin 1.8 g/dL (3.4-5.0); Magnesium 1.7 mg/dL (1.6-2.6); Potassium 3.8 mmol/L (3.5-5.1)
[2020-04-24 22:31] LABS: BUN/Creatinine Ratio 22.4; Bilirubin, Total 0.3 mg/dL (0.2-1.0); Total Protein 6.9 g/dL (6.4-8.2)
[2020-04-24 22:32] LABS: Lactic Acid w/Reflex 2.7 mmol/L (0.4-2.0)
[2020-04-24] MEDS ORDERED: CLINDAMYCIN 600MG IV 50 ML IV ONE (22:45)
[2020-04-24 22:56] LABS: INR 1.17 (0.9-1.15); Partial Thromboplastin Time 29.9 sec (23.0-31.2)
[2020-04-25 02:00] VITALS: BP 115/61
[2020-05-01] MEDS ORDERED: FLUC200T35 PO (12:56)
[2020-05-01] MEDS ORDERED: CIPR500T4 PO (12:56)
[2020-05-01] MEDS ORDERED: SACC250C PO (12:57)
[2020-05-01] MEDS ORDERED: PANT40TA2 PO (13:00)
== END 2020-04-25 01:29 | disposition home or self-care (01) ==
LOC: ER 20:12
DX: A41.9 Sepsis, unspecified organism (principal); L89.159 Pressure ulcer of sacral region, unspecified stage; G82.20 Paraplegia, unspecified; D50.9 Iron deficiency anemia, unspecified
CPT/HCPCS: 36415; 71045; 80053; 83605; 83735; 85025; 85610; 85730; 87040; 93005; 96365; 99285; J3490

== ENCOUNTER 2020-04-27 11:14 | Inpatient (IN) | payer OTHER, MEDICAID ==
[~2020-04-27] VITALS: Ht 177.8 cm; Wt 80.4 kg
[2020-04-27 11:55] LABS: Basophils # (auto) 0.1 10 ^3/uL (0-0.2); Eosinophils # (auto) 0.2 10 ^3/uL (0-0.8); Eosinophils % (auto) 1.5 % (0.0-7.0); Hematocrit 24.2 % (41.0-53.0); Hemoglobin 7.9 g/dL (13.5-17.5); Lymphocytes % (auto) 9.9 % (10.0-50.0); Mean Corpuscular Hemoglobin 22.6 pg (28.0-32.0); Mean Corpuscular Hgb Conc. 32.6 g/dL (32.0-36.0); Mean Corpuscular Volume 69.3 fL (80.0-100.0); Monocytes # (auto) 0.8 10 ^3/uL (0-1.3); Monocytes % (auto) 7.5 % (0.0-12.0); Neutrophils # (auto) 8.3 10 ^3/uL (1.6-8.6); Neutrophils % (auto) 80.1 % (37.0-80.0); Platelet Count (auto) 617 10^3/uL (140-450); Red Cell Distribution Width 19.3 % (11.8-14.3); White Blood Cell 10.3 10^3/uL (4.4-10.8)
[2020-04-27 12:10] LABS: INR 1.19 (0.9-1.15); Partial Thromboplastin Time 28.6 sec (23.0-31.2)
[2020-04-27 12:26] LABS: Potassium 3.4 mmol/L (3.5-5.1)
[2020-04-27 12:34] LABS: Albumin 1.8 g/dL (3.4-5.0); Bilirubin, Total 0.5 mg/dL (0.2-1.0); Calcium 8.1 mg/dL (8.5-10.1); Total Protein 6.9 g/dL (6.4-8.2)
[2020-04-27] MEDS ORDERED: VANCOMYCIN PER PHARMACY 0 MG IV SCH (12:45)
[2020-04-27] MEDS ORDERED: NITROGLYCERIN 0.4 MG SL TAB SL PRN ×2 (12:45→13:15)
[2020-04-27] MEDS ORDERED: MORPHINE SULF INJ 2 MG/ML SYRINGE 1ML IV PRN ×3 (12:45→13:15)
[2020-04-27] MEDS ORDERED: MEROPENEM 500MG IVPB 50 ML IV ONE ×2 (12:45→13:30)
[2020-04-27] MEDS ORDERED: DEXTROSE (50%) 50ML SYRG IV PRN (13:15)
[2020-04-27] MEDS ORDERED: POTASSIUM CHL 20 Meq TABLET PO ONE (13:15)
[2020-04-27] MEDS ORDERED: ONDANSETRON HCL 4 MG/2 ML VIAL IV PRN (13:15)
[2020-04-27] MEDS ORDERED: FAMOTIDINE 20 MG TAB PO ONE (13:15)
[2020-04-27] MEDS ORDERED: LORazepam 0.5 MG TAB PO PRN (13:15)
[2020-04-27] MEDS ORDERED: HYDROcodone-ACET 5/325MG TAB PO PRN (13:15)
[2020-04-27] MEDS ORDERED: ACETAMINOPHEN 325 MG TAB PO PRN (13:15)
[2020-04-27] MEDS ORDERED: DOCUSATE SOD 100 MG CAP PO PRN (13:15)
[2020-04-27] MEDS ORDERED: ALUM & MAG HYDROX-SIMETH LIQ(MAALOX) 30 ML PO PRN (13:15)
[2020-04-27] MEDS ORDERED: VANCOMYCIN 1GM/250ML 250 ML IV ONE ×2 (13:45→16:15)
[2020-04-27] MEDS ORDERED: PROBTAB12 PO (14:14)
[2020-04-27] MEDS ORDERED: METF-929 PO (14:14)
[2020-04-27] MEDS ORDERED: ONDA-155 SL (14:14)
[2020-04-27] MEDS ORDERED: BENA10TA9 PO (14:14)
[2020-04-27] MEDS ORDERED: MULT-1058 PO (14:14)
[2020-04-27] MEDS ORDERED: FURO20TA3 PO (14:14)
[2020-04-27] MEDS ORDERED: LEVE750T3 PO (14:14)
[2020-04-27] MEDS: SODIUM CHLORIDE 0.9% 1,000 ML IV SCH (15:01)
--- NOTE | 2020-04-27 16:15 | NUR ---
WOUND CARE NOTE: WOUND CARE IN TO SEE PATIENT PER WOUND CARE REQUEST. PATIENT ADMITTED TO [facility] FOR INFECTED SACRAL DECUBITI IN A BEDRIDDEN PATIENT. ER PROVIDER NOTED SKIN INTEGRITY ISSUES UPON EXAMINATION. PATIENT PINKY SCORE IS 10. PATIENT NOTED TO HAVE PRESSURE INJURIES TO: STAGE 2 TO LEFT HEEL, STAGE 4 TO LEFT LATERAL LOWER LEG, STAGE 4 TO LEFT HIP, STAGE 4 RIGHT HIP, STAGE 4 TO RIGHT LATERAL LOWER LEG, STAGE 4 TO BILATERAL BUTTOCKS, AND STAGE 4 TO SACRUM. ALL WOUND STATS CAN BE FOUND IN ATTACHED ASSESSMENT. PHOTOGRAPHS TAKEN AT THIS TIME FOR REFERENCE. ALL WOUNDS CLEANSED WITH WOUND CLEANSER, PATTED DRY WITH STERILE GAUZE, THERAHONEY GEL OR THERAHONEY GAUZE APPLIED, COVERED WITH OPTIFOAM GENTLE DRESSING OR ABD PADS/KERLIX/TAPE. NO OTHER WOUNDS NOTED AT THIS TIME. ORDERED SPECIALTY MATTRESS. SURGICAL CONSULT WITH DR. LANDA ALREADY ORDERED. RECOMMEND: FREQUENT Q2HOUR REPOSITIONING CONDITION PERMITS. REDISTRIBUTE PRESSURE UTILIZING PILLOWS AND WEDGES. DIETARY CONSULT. PODIATRY CONSULT. SPECIALTY AIR MATTRESS. PATIENT TO BE TRANSFERRED UPON DELIVERY BY [facility]. DAILY/PRN DRESSING CHANGES. SKIN/WOUND CARE PLAN. CONTINUED MONITORING BY WOUND CARE TEAM. Addendum: 04/27/20 at 1807 by GLENN JULIO RN RN Amended: Links added.
[2020-04-27] MEDS: ACCU-CHEK COMFORT CURVE STRIP VI SCH ×2 (18:00→22:34)
[2020-04-27] MEDS: InsuLIN REG 1unit/0.01ml Soln (100units/ml) SC SCH ×2 (18:18→22:44)
[2020-04-27] MEDS: SUCRALFATE 1 GM TAB PO SCH ×2 (18:19→22:33)
[2020-04-27] MEDS: FERROUS SULFATE 300 MG/5 ML ORAL LIQ PO SCH (18:19)
[2020-04-27] MEDS: CALCIUM W/VIT D (600MG/400IU) TAB PO SCH (18:19)
[2020-04-27] MEDS: Ensure Enlive Chocolate 8oz Bottle PO SCH (18:30)
[2020-04-27 20:19] LABS: Cholesterol 97 mg/dL (< 200)
[2020-04-27 20:28] LABS: HDL Cholesterol 37 mg/dL (40-59); LDL Cholesterol 55 mg/dL (< 100); Triglycerides 84 mg/dL (< 150)
--- NOTE | 2020-04-27 20:43 | NUR ---
Patient Brought to Unit from ER Patient is AOx4 and laying in bed with HOB at 30 degrees. Patient on air mattress and has no s/s of distress or SOB at this time. Patient has no complaints of pain. POC discussed with patient and patient verbally agreed to understanding. Will continue to monitor.
[2020-04-27] MEDS: FAMOTIDINE 20 MG TAB PO SCH (22:33)
[2020-04-27] MEDS: levETIRAcetam 500 MG TAB PO SCH (22:33)
[2020-04-27] MEDS: MEROPENEM 1GM IVPB 50 ML IV SCH (22:33)
[2020-04-27 23:10] VITALS: BP 130/67
[2020-04-28] MEDS: SODIUM CHLORIDE 0.9% 1,000 ML IV SCH ×2 (01:52→14:45)
[2020-04-28 05:00] VITALS: BP 126/72
[2020-04-28 05:29] VITALS: BP 130/67
[2020-04-28] MEDS: VANCOMYCIN 750mg/250ml 250 ML IV SCH ×2 (05:30→18:31)
[2020-04-28 06:08] LABS: Basophils # (auto) 0.1 10 ^3/uL (0-0.2); Eosinophils # (auto) 0.3 10 ^3/uL (0-0.8); Eosinophils % (auto) 4.3 % (0.0-7.0); Lymphocytes # (auto) 0.9 10 ^3/uL (0.4-5.4); Mean Corpuscular Volume 69.2 fL (80.0-100.0); Monocytes # (auto) 0.7 10 ^3/uL (0-1.3)
[2020-04-28 06:11] LABS: Basophils % (auto) 1.2 % (0.0-2.0); Hematocrit 24.7 % (41.0-53.0); Hemoglobin 8.1 g/dL (13.5-17.5); Lymphocytes % (auto) 11.8 % (10.0-50.0); Mean Corpuscular Hemoglobin 22.8 pg (28.0-32.0); Monocytes % (auto) 9.1 % (0.0-12.0); Neutrophils # (auto) 5.9 10 ^3/uL (1.6-8.6); Neutrophils % (auto) 73.6 % (37.0-80.0); Platelet Count (auto) 618 10^3/uL (140-450); Red Blood Cells 3.57 10^6/uL (4.5-5.90); Red Cell Distribution Width 19.4 % (11.8-14.3)
[2020-04-28] MEDS: MEROPENEM 1GM IVPB 50 ML IV SCH ×3 (06:30→22:06)
[2020-04-28 06:41] LABS: Calcium 8.7 mg/dL (8.5-10.1); Potassium 4.3 mmol/L (3.5-5.1)
[2020-04-28] MEDS: SUCRALFATE 1 GM TAB PO SCH ×4 (06:50→22:06)
[2020-04-28] MEDS: ACCU-CHEK COMFORT CURVE STRIP VI SCH ×4 (06:50→22:28)
[2020-04-28 06:51] LABS: BUN/Creatinine Ratio 25.5
[2020-04-28] MEDS: InsuLIN REG 1unit/0.01ml Soln (100units/ml) SC SCH ×4 (06:55→22:34)
[2020-04-28] MEDS: FERROUS SULFATE 300 MG/5 ML ORAL LIQ PO SCH ×3 (08:20→18:00)
[2020-04-28] MEDS: FAMOTIDINE 20 MG TAB PO SCH ×2 (08:21→22:06)
[2020-04-28] MEDS: Ensure Enlive Chocolate 8oz Bottle PO SCH ×3 (08:22→18:31)
[2020-04-28] MEDS: CALCIUM W/VIT D (600MG/400IU) TAB PO SCH ×2 (08:22→18:31)
[2020-04-28] MEDS: levETIRAcetam 500 MG TAB PO SCH ×2 (08:22→22:05)
[2020-04-28 09:00] VITALS: BP 112/57
[2020-04-28] MEDS ORDERED: POTASSIUM CHL 20 Meq TABLET PO SCH (10:00)
--- NOTE | 2020-04-28 11:03 | NUR ---
Dr. Atkinson at bedside MD aware of patient's status including labs, VS. Patient requesting to be "DNR no intubation no compressions" DNR form signed by MD and placed in chart, [facility] Will obtain wound cultures. Cont care
--- NOTE | 2020-04-28 11:55 | NUR ---
Wound care performed and wound cultures sent as ordered. UA collected at this time via supra pubic catheter and sent to lab. Dressings changed as ordered to sacrum, bilat hips, ble, patient tolerated well with no c/o pain. Will cont care
[2020-04-28 12:50] LABS: Urine Bacteria MANY /hpf (None Seen); Urine Blood 1+ /uL (Negative); Urine Budding Yeast LOADED /hpf (None Seen); Urine Specific Gravity 1.012 (1.001-1.035); Urine WBC 945 /hpf (0 - 3)
[2020-04-28 13:00] VITALS: BP 110/53
[2020-04-28 13:00] LABS: Amphetamine Screen, Urine NEGATIVE (NEGATIVE); Barbiturate Scree,Urine NEGATIVE (NEGATIVE); Benzodiazephine Screen, Urine NEGATIVE (NEGATIVE); Cannabinoid Screen, Urine NEGATIVE (NEGATIVE); Cocaine Screen, Urine NEGATIVE (NEGATIVE); Opiate Scree,Urine NEGATIVE (NEGATIVE); Phencyclidine Screen, Urine NEGATIVE (NEGATIVE)
--- NOTE | 2020-04-28 15:03 | NUR ---
Nutrition Assessment/consult Note please see attached link for complete assessment Est energy needs BW 68 [id number] kcal (25-30 kcal/kg BW) Est protein needs 68-88 g (1-1.3 g/kg BW) Will reassess prn Addendum: 04/28/20 at [address] Amended: Links added.
[2020-04-28 17:00] VITALS: BP 142/77
[2020-04-28 22:00] VITALS: BP 135/58
[2020-04-28] MEDS: MUPIROCIN 2% OINT 15gm or 22gm EACHNOSTRI SCH (22:28)
[2020-04-29 05:00] VITALS: BP 121/58
[2020-04-29 05:54] LABS: Hemoglobin 8.3 g/dL (13.5-17.5)
--- NOTE | 2020-04-29 06:00 | NUR ---
CHG applied new bed linen change colostomy changed Provided wound care as ordered to all wounds. PICC Line Dressing Changes PICC line dressing change done with a sterile technique. Cleansed with chloraprep scrub/betadine. Stat lock, and bio-patch as available. Occlusive dressing applied. Changed clavkaylynn weekly and post lab draw.
[2020-04-29 06:03] LABS: INR 1.05 (0.9-1.15); Partial Thromboplastin Time 27.6 sec (23.0-31.2)
[2020-04-29] MEDS: VANCOMYCIN 750mg/250ml 250 ML IV SCH ×2 (06:18→18:02)
[2020-04-29 06:24] LABS: Calcium 8.7 mg/dL (8.5-10.1); Magnesium 2.1 mg/dL (1.6-2.6)
[2020-04-29] MEDS: SUCRALFATE 1 GM TAB PO SCH ×4 (06:25→22:26)
[2020-04-29] MEDS: InsuLIN REG 1unit/0.01ml Soln (100units/ml) SC SCH ×4 (06:46→22:20)
[2020-04-29] MEDS: ACCU-CHEK COMFORT CURVE STRIP VI SCH ×4 (06:46→22:26)
--- NOTE | 2020-04-29 07:07 | NUR ---
provided report to day rn. Patient is resting in bed with no signs of distress and ready for surgery. Patient been NPO since midnight as ordered. endorsed to RN, patient not having order to access picc line.
[2020-04-29] MEDS: FERROUS SULFATE 300 MG/5 ML ORAL LIQ PO SCH ×3 (08:00→18:01)
[2020-04-29] MEDS: CALCIUM W/VIT D (600MG/400IU) TAB PO SCH ×2 (08:00→17:54)
[2020-04-29] MEDS: Ensure Enlive Chocolate 8oz Bottle PO SCH ×3 (08:00→17:54)
[2020-04-29] MEDS: MEROPENEM 1GM IVPB 50 ML IV SCH ×2 (08:41→16:07)
[2020-04-29 09:00] VITALS: BP 116/57
[2020-04-29] MEDS: FLORASTOR (S. BOULARDII) 250 MG CAP PO SCH (10:00)
[2020-04-29] MEDS: FAMOTIDINE 20 MG TAB PO SCH ×2 (10:00→22:26)
[2020-04-29] MEDS: MUPIROCIN 2% OINT 15gm or 22gm EACHNOSTRI SCH ×2 (10:27→22:20)
[2020-04-29] MEDS: levETIRAcetam 500 MG TAB PO SCH ×2 (10:27→22:26)
[2020-04-29] MEDS: SODIUM CHLORIDE 0.9% 1,000 ML IV SCH (11:18)
--- NOTE | 2020-04-29 11:18 | NUR ---
Patient taken down to preop, no acute distress or sob noted. Will resume care on arrival back to unit.
[2020-04-29] MEDS ORDERED: MIDAZOLAM HCL 1MG/1ML-2 ML VIAL ONE (13:05)
[2020-04-29] MEDS ORDERED: fentaNYL CITRATE 100 MCG/2 ML VL ONE (13:05)
[2020-04-29] MEDS ORDERED: PROPOFOL 10 MG/ML 20 ML IV ONE (13:14)
[2020-04-29] MEDS ORDERED: hydrALAZINE HCL 20 MG/ML VL IV PRN (14:00)
[2020-04-29] MEDS ORDERED: ePHEDrine SULFATE 50 MG/ML AMP IV PRN (14:00)
[2020-04-29] MEDS ORDERED: ONDANSETRON HCL 4 MG/2 ML VIAL IV PRN (14:00)
--- NOTE | 2020-04-29 14:48 | NUR ---
Patient back from PACU VSS, dressing to sacrum drainage circled. BLE dressings noted removed and not dressed as ordered at this time. Per pattern fitter Em they "did not see order to dress the BLE wounds". Dressings to BLE cleaned and dressings changed as ordered with thera honey, abd pads and wrapped in Kerlix after cleansed with wound spray and padded dry with sterile gauze. Patient tolerated well. Cont to monitor
[2020-04-29 17:00] VITALS: BP 116/61
--- NOTE | 2020-04-29 19:00 | NUR ---
Patient care endorsed endorsed care to Vignesh stanford. Patient laying down comfortably in bed no acute distress or sob. Fall precs in place per protocol, bed alarm on at all times. Call light within reach. Patient denies pain.
--- NOTE | 2020-04-29 19:25 | NUR ---
Opening Shift Note Assumed care of patient, awake and alert. No S/S of distress/SOB or pain. Patient has been repositioned and is resting comfortably on an air mattress. Bed is locked in lowest position with call light within reach. Instructed on POC and to call for assist PRN, will continue to monitor for changes Q1hr and PRN.
--- NOTE | 2020-04-29 19:35 | NUR ---
Opening Shift Note Assumed care of patient, awake and alert. No S/S of distress/SOB. Patient c/o left knee pain that she rates as 9/10. Patient is requesting pain medication. Will treat with PRN morphine 2 mg. Bed is locked in lowest position with call light within reach. Instructed on POC and to call for assist PRN, will continue to monitor for changes Q1hr and PRN. Addendum: 04/30/20 at 0333 by Vignesh Coelho RN *wrong patient*
--- NOTE | 2020-04-29 20:08 | NUR ---
Patient's blood pressure is elevated at 168/89. Will treat with PRN clonidine and will reevaluate blood pressure. Addendum: 04/30/20 at 0334 by Vignesh Coelho RN *wrong patient*
[2020-04-29 22:00] VITALS: BP 124/68
[2020-04-30 05:00] VITALS: BP 140/69
--- NOTE | 2020-04-30 05:00 | NUR ---
COLOSTOMY BAG HAS BEEN EMPTIED. STOOL IS BROWN AND FORMED. PATIENT TOLERATED WELL.
[2020-04-30 05:41] LABS: Basophils # (auto) 0.1 10 ^3/uL (0-0.2); Eosinophils # (auto) 0.3 10 ^3/uL (0-0.8); Monocytes # (auto) 0.5 10 ^3/uL (0-1.3); White Blood Cell 5.9 10^3/uL (4.4-10.8)
[2020-04-30 05:48] LABS: Basophils % (auto) 1.8 % (0.0-2.0); Eosinophils % (auto) 5.4 % (0.0-7.0); Hematocrit 25.3 % (41.0-53.0); Hemoglobin 8.3 g/dL (13.5-17.5); Lymphocytes # (auto) 1.3 10 ^3/uL (0.4-5.4); Lymphocytes % (auto) 22.3 % (10.0-50.0); Mean Corpuscular Hemoglobin 22.9 pg (28.0-32.0); Mean Corpuscular Hgb Conc. 32.8 g/dL (32.0-36.0); Mean Corpuscular Volume 69.8 fL (80.0-100.0); Monocytes % (auto) 8.1 % (0.0-12.0); Neutrophils # (auto) 3.7 10 ^3/uL (1.6-8.6); Neutrophils % (auto) 62.4 % (37.0-80.0); Platelet Count (auto) 708 10^3/uL (140-450); Red Blood Cells 3.62 10^6/uL (4.5-5.90)
[2020-04-30] MEDS: VANCOMYCIN 750mg/250ml 250 ML IV SCH ×2 (05:57→18:55)
[2020-04-30 06:14] LABS: Potassium 4.3 mmol/L (3.5-5.1)
[2020-04-30 06:18] LABS: BUN/Creatinine Ratio 26.2
[2020-04-30 06:25] LABS: Red Cell Distribution Width 20.2 % (11.8-14.3)
[2020-04-30] MEDS: SUCRALFATE 1 GM TAB PO SCH ×4 (06:32→22:00)
[2020-04-30] MEDS: InsuLIN REG 1unit/0.01ml Soln (100units/ml) SC SCH ×4 (06:32→22:00)
[2020-04-30] MEDS: ACCU-CHEK COMFORT CURVE STRIP VI SCH ×4 (06:32→22:00)
[2020-04-30] MEDS: SODIUM CHLORIDE 0.9% 1,000 ML IV SCH (06:32)
[2020-04-30] MEDS: Ensure Enlive Chocolate 8oz Bottle PO SCH ×3 (08:00→18:00)
[2020-04-30] MEDS: CALCIUM W/VIT D (600MG/400IU) TAB PO SCH ×2 (08:14→17:45)
[2020-04-30] MEDS: MEROPENEM 1GM IVPB 50 ML IV SCH ×3 (08:14→16:28)
[2020-04-30] MEDS: FERROUS SULFATE 300 MG/5 ML ORAL LIQ PO SCH ×3 (08:41→17:45)
[2020-04-30 08:43] VITALS: BP 127/69
[2020-04-30] MEDS: FAMOTIDINE 20 MG TAB PO SCH ×2 (10:16→22:00)
[2020-04-30] MEDS: levETIRAcetam 500 MG TAB PO SCH ×2 (10:16→22:00)
[2020-04-30] MEDS: FLORASTOR (S. BOULARDII) 250 MG CAP PO SCH (10:17)
[2020-04-30] MEDS: MUPIROCIN 2% OINT 15gm or 22gm EACHNOSTRI SCH ×2 (10:18→22:00)
--- NOTE | 2020-04-30 10:30 | NUR ---
WOUND CARE NOTE: New wound care request received for patient's s/p debridement sacral, hips pressure injuries. Patient continue resting in air mattress in Rm. 297A. Patient is awake, alert and oriented. He denies any pain at this time. Patient appears to be in no pain using Maldonado Carmona Faces Pain Scale. He needs assistance in turning and repositioning and his Nikhil score is 13. Patient admitted with multiple Stage 4 pressure injuries to sacral ([id number]), Rt (4.5x4x1.8cm) Lt (7.7x6x0.8cm) lower buttocks and Lt (5x3x1.2cm) and Rt ((5x6x0.7cm) Hips. Patient is one day s/p wound debridement of sacral and hips pressure injuries with . Skin/wound assessment done with the assistance of patient's nurse, JAKOB Molina. Sacral, buttocks and hips pressure injuries has clean wound bed with granulation tissue noted. Rt hip noted with undermining from 7:00-3:00 o'clock position with deepest of 2cm at 7:00 o' clock. Bree wound is pink with dark brown hyperpigmented skin, minimal serous drainage noted, no odor noted. Cleansed wounds with wound cleanser,patted dry with gauze, Applied Thera honey gel, honey gauze to wound bed area, fill wound cavity with sterile water moistened gauze roll. Cover wounds with Opti lock dressing and secured with Medipore tape. Patient's Rt (32x4.5cm) and Lt. (21x3cm) lateral lower leg continue to display Stage 4 pressure injuries. Rt lower leg wound has 95% red wound bed 5% black and yellow adherent slough. Lt lower leg wound has 5% yellow slough, 20% black eschar and 75% red wound bed. bree wound is pink with brown hyperpigmented skin, minimal sanguinous drainage noted, no odor noted. Patient's Rt heel wound continue to improve with 2x2cm open full thickness wound. Red and pale pink with yellow wound bed, pink surrounding skin, no drainage/odor noted. Rt. lateral ankle collagen scar tissue remain intact,pink and dry. Cleansed BLE wounds with wound cleanser, patted dry with gauze, applied Thera serge gauze, covered with Telfa (non-adherent dressing) wrapped with Kerlix and secured with tape. New photograph of wounds are taken for reference. Patient tolerated well. Repositioned for comfort facing his Lt side, redistributed pressure points with pillows. Student nurse at bedside. RECOMMENDATION: Nursing to continue with Daily/PRN dressing change to multiple wounds per MD order, continue with skin/wound plan of care, continue monitoring by wound care while patient is hospitalized. Addendum: 04/30/20 at 1716 by Dea Decker RN Amended: Links added.
--- NOTE | 2020-04-30 11:45 | NUR ---
Hospitalist MD Atkinson at bedside, aware of patient status. Per MD Atkinson, she will place a social service consult for Home IV Antibiotics. Will cont to monitor patient.
[2020-04-30 13:00] VITALS: BP 136/67
[2020-04-30] MEDS ORDERED: FLUCONAZOLE 200MG/100ML 100 ML IV ONE ×2 (16:15→20:00)
[2020-04-30 16:41] VITALS: BP 130/60
--- NOTE | 2020-04-30 19:13 | NUR ---
Closing note Endorsed care to night JAKOB Medellin. Patient resting in bed, no distress, sob, or pain noted at this time.
--- NOTE | 2020-04-30 19:25 | NUR ---
Opening Shift Note Assumed care of patient, awake and alert. No S/S of distress/SOB or pain. Bed is locked in lowest position with call light within reach. Instructed on POC and to call for assist PRN, will continue to monitor for changes Q1hr and PRN.
[2020-04-30 22:00] VITALS: BP 122/58
[2020-05-01] MEDS: SODIUM CHLORIDE 0.9% 1,000 ML IV SCH (02:45)
[2020-05-01 05:00] VITALS: BP 111/57
[2020-05-01] MEDS: VANCOMYCIN 750mg/250ml 250 ML IV SCH (05:51)
[2020-05-01] MEDS: SUCRALFATE 1 GM TAB PO SCH ×2 (06:41→11:20)
[2020-05-01] MEDS: InsuLIN REG 1unit/0.01ml Soln (100units/ml) SC SCH ×2 (06:41→11:19)
[2020-05-01] MEDS: ACCU-CHEK COMFORT CURVE STRIP VI SCH ×2 (06:41→11:19)
--- NOTE | 2020-05-01 07:30 | NUR ---
Opening Shift Note Assumed care of patient, awake and alert. No S/S of distress/SOB or pain. Instructed on POC and to call for assist PRN, will continue to monitor for changes Q1hr and PRN. Bed is locked and in lowest position. Call light within reach.
[2020-05-01] MEDS: MEROPENEM 1GM IVPB 50 ML IV SCH ×2 (07:50)
[2020-05-01] MEDS: CALCIUM W/VIT D (600MG/400IU) TAB PO SCH (07:51)
[2020-05-01] MEDS: Ensure Enlive Chocolate 8oz Bottle PO SCH (08:00)
--- NOTE | 2020-05-01 08:39 | NUR ---
PHONE CALL MADE TO DIETARY REGARDING ENSURE 240 ML NOT BROUGHT WITH BREAKFAST TRAY. WILL AWAIT ENSURE FOR PATIENT.
[2020-05-01 08:48] VITALS: BP 113/57
[2020-05-01] MEDS: FERROUS SULFATE 300 MG/5 ML ORAL LIQ PO SCH ×2 (08:55→12:47)
[2020-05-01] MEDS: FAMOTIDINE 20 MG TAB PO SCH (09:34)
[2020-05-01] MEDS: FLORASTOR (S. BOULARDII) 250 MG CAP PO SCH (09:35)
[2020-05-01] MEDS: levETIRAcetam 500 MG TAB PO SCH (09:35)
[2020-05-01] MEDS: MUPIROCIN 2% OINT 15gm or 22gm EACHNOSTRI SCH (09:35)
[2020-05-01] MEDS ORDERED: FLUCONAZOLE 200MG/100ML 100 ML IV SCH (10:00)
--- NOTE | 2020-05-01 11:33 | NUR ---
1130 05/01/20- Faxed to [facility] at [phone] face sheet, order for home IV ABx Vancomycin 750 mg BID x 4 weeks and Meropenem 1 GM TID x 4 weeks, H/P, labs, meds, xray of PICC, flush orders. Pending review, delivery of supplies to patient's home. Addendum: 05/01/20 at 1353 by Julieth Lopez RN, CM 2200 05/01/20 - Faxed to [facility] at [phone] new home IV ABx order Invanz 1GM daily x 2 weeks, meds. Contacted [facility] at [phone] spoke to Shabbir regarding updated home IV ABx order, Shabbir confirmed receiving updated order, and she would review new order. I informed Shabbir the home health agency is going to be [facility]. Addendum: 05/01/20 at 1416 by Julieth Lopez RN, CM [id number] 05/01/20 - Contacted by Sharyn from [facility] who stated patient has no co-pay, supplies will be delivered to patient's home today between [id number] and services will start tomorrow (05/02/2020)
[2020-05-01] MEDS ORDERED: ERTAPENEM SOD INJ 1 GM in SODIUM CHL 0.9% 50 ML IV ONE (12:45)
[2020-05-01] MEDS ORDERED: CIPROFLOXACIN 400MG/200ML 200 ML IV ONE (12:45)
[2020-05-01 12:50] VITALS: BP 120/56
--- NOTE | 2020-05-01 12:51 | NUR ---
PHONE CALL MADE TO DIETARY REGARDING ENSURE 240 ML NOT BROUGHT WITH LUNCH TRAY. WILL AWAIT ENSURE FOR PATIENT.
--- NOTE | 2020-05-01 12:55 | NUR ---
PHONE CALL RECEIVED FROM DIETARY REGARDING ENSURE NOT BEING PROVIDED WITH TRAYS. INFORMED PATIENT IS ON A CONSISTENT CARB DIET AND ENSURE NEEDS TO BE CHANGED TO GLUCERNA. PAGED NUTRITION IN REGARDS TO ORDER CHANGE. OBTAINED NEW ORDERS AND WILL BE CARRIED OUT.
[2020-05-01] MEDS ORDERED: CIPR500T4 PO (12:56)
[2020-05-01] MEDS ORDERED: FLUC200T35 PO (12:56)
[2020-05-01] MEDS ORDERED: SACC250C PO (12:57)
[2020-05-01] MEDS ORDERED: PANT40TA2 PO (13:00)
--- NOTE | 2020-05-01 14:20 | NUR ---
assessment Patient is a 65 year old male who is alert and oriented. Prior to admission patient lived home with family and needed assistance. Patient will return home on discharge. Patient has no safety concerns regarding returning home on discharge. 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 Per patient he has a wheelchair and hospital bed for home use. Patient has a consult for home IV ABX. Patient is on service with [facility]. order has been sent to [facility]. Renzo Barrera at [facility] they have accepted patient back for service starting tomorrow 05/02/20. Patients daughter has been notified. Julieth case management social worker is working on IV ABX. I informed patient he has a right to speak to a social sciences lecturer regarding all care. I informed patient he has a right to participate in any and all discharge planning. Patient has a POA and advanced directive. Patient verbalized understanding and agreed to discharge plan. Addendum: 05/01/20 at 1425 by Gladys WARNER Amended: Links added.
--- NOTE | 2020-05-01 15:04 | NUR ---
1400 05/01/20 - Faxed to [facility] at [phone] face sheet, order for HH for PICC care and IV Abx ([facility] has accepted patient for services), discharge summary. Requested authorization for [facility]. Received call from [facility] DC capacity planner Kinsey who confirmed receiving all faxed documents. Per Kinsey approved authorization is [id number], Kinsey also stated [facility] would start services on tomorrow (05/02/2020). Informed SS Gladys Leon of all information as stated above.
[2020-05-01 16:39] VITALS: BP 117/67
[2020-05-01] MEDS ORDERED: Glucerna Carbsteady SHAKE Vanilla 8oz PO SCH (18:00)
--- NOTE | 2020-05-01 18:58 | NUR ---
DISCHARGE PATIENT GIVEN DISCHARGE PAPERWORK, ALL QUESTIONS AND CONCERNS ANSWERED TO DAUGHTER IN LAW AND PATIENT. PATIENT TELEMONITOR REMOVED AND SENT TO ICU HEART LAB. PATIENT DISCHARGED WITH PICC LINE AND ANDERS PER DOCTORS ORDER. PATIENT HAS HOME HEALTH SET UP TO START 05/02/20 WITH [facility] PATIENT TRANSFERRED VIA WHEELCHAIR TO PERSONAL VEHICLE WITH NO SIGNS OF DISTRESS OR PAIN.
[2020-05-01] MEDS ORDERED: CIPROFLOXACIN HCL 500 MG TAB PO SCH (22:00)
[2020-05-02] MEDS ORDERED: FLUCONAZOLE 100 MG TAB PO SCH (10:00)
[2020-05-02] MEDS ORDERED: ERTAPENEM SOD INJ 1 GM in SODIUM CHL 0.9% 50 ML IV SCH (10:00)
--- NOTE | 2020-05-04 15:39 | NUR ---
1530 05/04/20 - Faxed to [facility] at [phone], to [facility] at [phone] and [facility] at [phone] new order for [facility] for PICC line care and IV ABx Ivanz 1GM IV daily for 4 weeks for ESBL UTI and wound infection. Contacted [facility] at [phone], [facility] Marisela at [phone] and [facility] at [phone] to informed all of the updated order. Each agency verbalized understanding of all info as stated above.
== END 2020-05-01 18:38 | disposition home health service (06) | DRG 592 ==
LOC: ER 11:14 → EDBD 11:14 → TELE 11:15 → TELE-WESTW 20:43
PROVIDERS: ADMIT Hospitalist; ATTEND Internal Medicine
PROC: 0HD6XZZ Extraction of Back Skin, External Approach (ICD-10-PCS; principal; 2020-04-29 12:53)
DX: L89.154 Pressure ulcer of sacral region, stage 4 (principal); E43 Unspecified severe protein-calorie malnutrition; L97.909 Non-pressure chronic ulcer of unspecified part of unspecified lower leg with unspecified severity; E87.1 Hypo-osmolality and hyponatremia; M86.60 Other chronic osteomyelitis, unspecified site; Z16.12 Extended spectrum beta lactamase (ESBL) resistance; N39.0 Urinary tract infection, site not specified; G82.20 Paraplegia, unspecified; D50.9 Iron deficiency anemia, unspecified; G40.909 Epilepsy, unspecified, not intractable, without status epilepticus; E87.6 Hypokalemia; I10 Essential (primary) hypertension; E11.69 Type 2 diabetes mellitus with other specified complication; F32.9 Major depressive disorder, single episode, unspecified; Z66 Do not resuscitate; L89.622 Pressure ulcer of left heel, stage 2; B96.20 Unspecified Escherichia coli [E. coli] as the cause of diseases classified elsewhere; Z98.2 Presence of cerebrospinal fluid drainage device; Z91.81 History of falling; Z93.3 Colostomy status; Z79.84 Long term (current) use of oral hypoglycemic drugs; Z68.25 Body mass index [BMI] 25.0-25.9, adult; Z88.0 Allergy status to penicillin; Z74.01 Bed confinement status; Z85.46 Personal history of malignant neoplasm of prostate; Z86.61 Personal history of infections of the central nervous system; Z87.440 Personal history of urinary (tract) infections
CPT/HCPCS: 36415; 71045; 80048; 80053; 80061; 80202; 80307; 81001; 82270; 82962; 83036; 83735; 84484; 85014; 85018; 85025; 85610; 85652; 85730; 86141; 86850; 86900; 86901; 87040; 87077; 87081; 87086; 87088; 87186; 87205; 96361; 96365; 96367; G0378; J1335; J1450; J1815; J2185; J2250; J2704

== ENCOUNTER 2020-09-23 21:11 | Inpatient (IN) | payer MEDICARE, MEDICAID ==
[~2020-09-23] VITALS: Ht 177.8 cm; Wt 63.0 kg
[~2020-09-23 21:11] MED LIST changes: +BENA10TA15 PO; +CIPR500T4 PO; +FLUC200T35 PO; +FURO20TA3 PO; -KEP500T PO; +LEVE750T3 PO; -METF-370 PO; +MULT-1058 PO; +ONDA-155 SL; +PANT40TA2 PO; +PROBTAB12 PO; +SACC250C PO
[2020-09-23 22:12] LABS: Basophils # (auto) 0.1 10 ^3/uL (0-0.2); Eosinophils # (auto) 0 10 ^3/uL (0-0.8); Hemoglobin 7.4 g/dL (13.5-17.5); Lymphocytes # (auto) 0.9 10 ^3/uL (0.4-5.4)
[2020-09-23 22:13] LABS: Eosinophils % (auto) 0.2 % (0.0-7.0); Lymphocytes % (auto) 8.1 % (10.0-50.0); Mean Corpuscular Hemoglobin 18.8 pg (28.0-32.0); Mean Corpuscular Hgb Conc. 32.1 g/dL (32.0-36.0); Mean Corpuscular Volume 58.7 fL (80.0-100.0); Monocytes # (auto) 0.7 10 ^3/uL (0-1.3); Monocytes % (auto) 6.9 % (0.0-12.0); Neutrophils % (auto) 83.8 % (37.0-80.0); Red Blood Cells 3.92 10^6/uL (4.5-5.90); Red Cell Distribution Width 19.1 % (11.8-14.3); White Blood Cell 10.7 10^3/uL (4.4-10.8)
[2020-09-23] MEDS ORDERED: levoFLOXacin 750MG 150 ML IV ONE (22:30)
[2020-09-23 22:34] LABS: Albumin 2.1 g/dL (3.4-5.0); Anion Gap 5 (5-15); Blood Urea Nitrogen 24 mg/dL (7-18); Calcium 8.5 mg/dL (8.5-10.1); Carbon Dioxide 29 mmol/L (21-32); Chloride 100 mmol/L (98-107); Glucose 184 mg/dL (74-106); Magnesium 1.7 mg/dL (1.6-2.6); Potassium 4.7 mmol/L (3.5-5.1); Sodium 134 mmol/L (136-145)
[2020-09-23 22:37] LABS: INR 1.17 (0.9-1.15); Partial Thromboplastin Time 29.2 sec (23.0-31.2)
[2020-09-23 22:37] LABS: Lactic Acid w/Reflex 3.6 mmol/L (0.4-2.0)
[2020-09-23 22:41] LABS: Alanine Aminotransferase 9 U/L (16-61); Alkaline Phosphatase 119 U/L (45-117); Aspartate Aminotransferase 12 U/L (15-37); BUN/Creatinine Ratio 28.9; Bilirubin, Total 0.3 mg/dL (0.2-1.0); GFR African American 119 mL/min; GFR Non-African American 99 mL/min; Total Protein 8.4 g/dL (6.4-8.2)
[2020-09-23 23:25] LABS: Urine Bacteria FEW /hpf (None Seen); Urine Blood 2+ /uL (Negative); Urine Specific Gravity 1.016 (1.001-1.035); Urine WBC 75 /hpf (0 - 3)
[2020-09-24] MEDS ORDERED: ONDANSETRON HCL 4 MG/2 ML VIAL IV PRN (02:45)
[2020-09-24] MEDS ORDERED: MORPHINE SULFATE INJECTION 2 MG/ML SYRG IV PRN (02:45)
[2020-09-24] MEDS ORDERED: HYDROcodone-ACET 5/325MG TAB PO PRN (02:45)
[2020-09-24] MEDS: SODIUM CHLORIDE 0.9% 1,000 ML IV SCH ×2 (02:45→14:31)
[2020-09-24] MEDS ORDERED: NITROGLYCERIN 0.4 MG SL TAB SL PRN (02:45)
[2020-09-24] MEDS ORDERED: DEXTROSE (50%) 50ML SYRG IV PRN (02:45)
[2020-09-24] MEDS ORDERED: ACETAMINOPHEN 325 MG TAB PO PRN (02:45)
[2020-09-24] MEDS ORDERED: TEMAZEPAM 15 MG CAP PO ONE (03:15)
[2020-09-24] MEDS: InsuLIN REG 1unit/0.01ml Soln (100units/ml) SC SCH ×4 (06:59→22:13)
[2020-09-24] MEDS: ACCU-CHEK COMFORT CURVE STRIP VI SCH ×4 (06:59→22:09)
[2020-09-24] MEDS: FERROUS SULFATE 325mg EC TAB PO SCH ×2 (08:00→17:16)
[2020-09-24 09:00] VITALS: BP_SYST 112; BP_SYST 125; BP_DIAS 55; BP_DIAS 83
[2020-09-24] MEDS: levETIRAcetam 500 MG TAB PO SCH ×3 (10:00→22:05)
[2020-09-24] MEDS: levoFLOXacin 500MG 100 ML IV SCH (10:24)
[2020-09-24] MEDS: PANTOPRAZOLE 40 MG TAB PO SCH (10:25)
[2020-09-24] MEDS: FUROSEMIDE 20 MG TAB PO SCH (10:25)
[2020-09-24] MEDS: ENOXAPARIN SOD 40 MG/0.4 ML SYRINGE SC SCH (10:25)
[2020-09-24 13:00] VITALS: BP 115/79
[2020-09-24 17:00] VITALS: BP 107/60
[2020-09-24 22:00] VITALS: BP 121/66
[2020-09-25] MEDS: TEMAZEPAM 15 MG CAP PO PRN (01:26)
[2020-09-25] MEDS: SODIUM CHLORIDE 0.9% 1,000 ML IV SCH ×2 (02:09→13:26)
[2020-09-25 05:00] VITALS: BP 116/63
[2020-09-25 06:22] LABS: Basophils # (auto) 0.1 10 ^3/uL (0-0.2); Basophils % (auto) 1.4 % (0.0-2.0); Eosinophils # (auto) 0.3 10 ^3/uL (0-0.8); Eosinophils % (auto) 4.4 % (0.0-7.0); Hematocrit 20.7 % (41.0-53.0); Lymphocytes # (auto) 1.7 10 ^3/uL (0.4-5.4); Lymphocytes % (auto) 25.2 % (10.0-50.0); Mean Corpuscular Hgb Conc. 32.6 g/dL (32.0-36.0); Mean Corpuscular Volume 58.2 fL (80.0-100.0); Monocytes # (auto) 0.8 10 ^3/uL (0-1.3); Monocytes % (auto) 12.4 % (0.0-12.0); Neutrophils # (auto) 3.8 10 ^3/uL (1.6-8.6); Neutrophils % (auto) 56.6 % (37.0-80.0); Nucleated Red Blood Cells % 0.1 %; Red Blood Cells 3.55 10^6/uL (4.5-5.90); Red Cell Distribution Width 19.8 % (11.8-14.3); White Blood Cell 6.7 10^3/uL (4.4-10.8)
[2020-09-25] MEDS: InsuLIN REG 1unit/0.01ml Soln (100units/ml) SC SCH ×4 (06:22→21:47)
[2020-09-25] MEDS: ACCU-CHEK COMFORT CURVE STRIP VI SCH ×4 (06:23→21:47)
[2020-09-25 06:26] LABS: Hemoglobin 6.7 g/dL (13.5-17.5)
[2020-09-25 06:38] LABS: Potassium 3.5 mmol/L (3.5-5.1)
[2020-09-25 06:46] LABS: BUN/Creatinine Ratio 27.9; Bilirubin, Total 0.3 mg/dL (0.2-1.0); Calcium 8.3 mg/dL (8.5-10.1); Total Protein 7.8 g/dL (6.4-8.2)
[2020-09-25] MEDS: FERROUS SULFATE 325mg EC TAB PO SCH ×2 (08:29→17:30)
[2020-09-25 09:00] VITALS: BP 129/56
[2020-09-25] MEDS: levoFLOXacin 500MG 100 ML IV SCH (10:15)
[2020-09-25] MEDS: FUROSEMIDE 20 MG TAB PO SCH (10:15)
[2020-09-25] MEDS: levETIRAcetam 500 MG TAB PO SCH ×2 (10:15→22:10)
[2020-09-25] MEDS: PANTOPRAZOLE 40 MG TAB PO SCH (10:16)
[2020-09-25] MEDS: ENOXAPARIN SOD 40 MG/0.4 ML SYRINGE SC SCH (10:16)
[2020-09-25] MEDS: diphenhdrAMINE HCL 25 MG CAP PO PRN (11:45)
[2020-09-25 13:00] VITALS: BP 120/53
[2020-09-25 17:00] VITALS: BP 120/64
[2020-09-25 18:41] VITALS: BP 121/72
[2020-09-25 22:00] VITALS: BP 131/62
[2020-09-26] MEDS: SODIUM CHLORIDE 0.9% 1,000 ML IV SCH ×3 (00:51→23:32)
[2020-09-26 05:00] VITALS: BP 130/63
[2020-09-26] MEDS: InsuLIN REG 1unit/0.01ml Soln (100units/ml) SC SCH ×4 (06:09→21:42)
[2020-09-26] MEDS: ACCU-CHEK COMFORT CURVE STRIP VI SCH ×4 (06:09→21:42)
[2020-09-26 06:10] LABS: Basophils # (auto) 0.1 10 ^3/uL (0-0.2); Hemoglobin 8.2 g/dL (13.5-17.5); Lymphocytes # (auto) 1.5 10 ^3/uL (0.4-5.4); Nucleated Red Blood Cells % 0.1 %
[2020-09-26 06:12] LABS: Eosinophils # (auto) 0.1 10 ^3/uL (0-0.8); Hematocrit 24.4 % (41.0-53.0); Lymphocytes % (auto) 20.4 % (10.0-50.0); Mean Corpuscular Hemoglobin 21.2 pg (28.0-32.0); Mean Corpuscular Hgb Conc. 33.5 g/dL (32.0-36.0); Mean Corpuscular Volume 63.3 fL (80.0-100.0); Monocytes # (auto) 0.8 10 ^3/uL (0-1.3); Neutrophils # (auto) 4.8 10 ^3/uL (1.6-8.6); Neutrophils % (auto) 65.6 % (37.0-80.0); Red Blood Cells 3.85 10^6/uL (4.5-5.90); White Blood Cell 7.3 10^3/uL (4.4-10.8)
[2020-09-26 06:20] LABS: Red Cell Distribution Width 28.2 % (11.8-14.3)
[2020-09-26] MEDS: FERROUS SULFATE 325mg EC TAB PO SCH ×2 (07:45→17:21)
[2020-09-26 08:50] VITALS: BP 120/69
[2020-09-26] MEDS: ENOXAPARIN SOD 40 MG/0.4 ML SYRINGE SC SCH (10:43)
[2020-09-26] MEDS: levoFLOXacin 500MG 100 ML IV SCH (10:43)
[2020-09-26] MEDS: FUROSEMIDE 20 MG TAB PO SCH (10:43)
[2020-09-26] MEDS: PANTOPRAZOLE 40 MG TAB PO SCH (10:44)
[2020-09-26 13:30] VITALS: BP 134/66
[2020-09-26] MEDS: diphenhdrAMINE HCL 25 MG CAP PO PRN (14:51)
[2020-09-26 16:35] VITALS: BP 136/60
[2020-09-26 21:44] VITALS: BP 132/50
[2020-09-27] MEDS: diphenhdrAMINE HCL 25 MG CAP PO PRN (03:51)
[2020-09-27 05:00] VITALS: BP 131/60
[2020-09-27] MEDS: ACCU-CHEK COMFORT CURVE STRIP VI SCH ×4 (06:03→22:00)
[2020-09-27] MEDS: InsuLIN REG 1unit/0.01ml Soln (100units/ml) SC SCH ×4 (06:04→22:00)
[2020-09-27 07:44] LABS: Hemoglobin 7.9 g/dL (13.5-17.5); White Blood Cell 7.3 10^3/uL (4.4-10.8)
[2020-09-27 07:46] LABS: Basophils # (auto) 0.1 10 ^3/uL (0-0.2); Basophils % (auto) 1.1 % (0.0-2.0); Eosinophils # (auto) 0.1 10 ^3/uL (0-0.8); Eosinophils % (auto) 1.7 % (0.0-7.0); Hematocrit 23.4 % (41.0-53.0); Lymphocytes # (auto) 1.9 10 ^3/uL (0.4-5.4); Lymphocytes % (auto) 25.4 % (10.0-50.0); Mean Corpuscular Hemoglobin 21.2 pg (28.0-32.0); Mean Corpuscular Hgb Conc. 33.6 g/dL (32.0-36.0); Mean Corpuscular Volume 62.9 fL (80.0-100.0); Monocytes # (auto) 0.6 10 ^3/uL (0-1.3); Monocytes % (auto) 8.3 % (0.0-12.0); Neutrophils # (auto) 4.7 10 ^3/uL (1.6-8.6); Neutrophils % (auto) 63.5 % (37.0-80.0); Nucleated Red Blood Cells % 0.3 %; Red Blood Cells 3.72 10^6/uL (4.5-5.90); Red Cell Distribution Width 26.5 % (11.8-14.3)
[2020-09-27] MEDS: FERROUS SULFATE 325mg EC TAB PO SCH ×2 (07:47→17:41)
[2020-09-27 07:53] LABS: INR 1.08 (0.9-1.15); Partial Thromboplastin Time 29.1 sec (23.0-31.2)
[2020-09-27 08:38] VITALS: BP 154/88
[2020-09-27] MEDS: ENOXAPARIN SOD 40 MG/0.4 ML SYRINGE SC SCH (10:00)
[2020-09-27] MEDS: FUROSEMIDE 20 MG TAB PO SCH (10:08)
[2020-09-27] MEDS: PANTOPRAZOLE 40 MG TAB PO SCH (10:08)
[2020-09-27 12:55] VITALS: BP 131/58
[2020-09-27] MEDS ORDERED: cefTRIAXone 1GM/50ML D5W 50 ML IV ONE (13:45)
[2020-09-27 16:48] VITALS: BP 132/65
[2020-09-27 22:00] VITALS: BP 134/56
[2020-09-27] MEDS: TEMAZEPAM 15 MG CAP PO PRN (23:56)
[2020-09-28 05:00] VITALS: BP 106/55
[2020-09-28 06:35] LABS: Basophils # (auto) 0.1 10 ^3/uL (0-0.2); Eosinophils # (auto) 0.2 10 ^3/uL (0-0.8); White Blood Cell 7.6 10^3/uL (4.4-10.8)
[2020-09-28 06:37] LABS: Hematocrit 24.9 % (41.0-53.0); Hemoglobin 8.3 g/dL (13.5-17.5); Lymphocytes # (auto) 1.6 10 ^3/uL (0.4-5.4); Lymphocytes % (auto) 21.5 % (10.0-50.0); Mean Corpuscular Hgb Conc. 33.3 g/dL (32.0-36.0); Mean Corpuscular Volume 62.9 fL (80.0-100.0); Monocytes # (auto) 0.7 10 ^3/uL (0-1.3); Monocytes % (auto) 9.2 % (0.0-12.0); Neutrophils % (auto) 65.3 % (37.0-80.0); Nucleated Red Blood Cells % 0.1 %; Red Blood Cells 3.95 10^6/uL (4.5-5.90)
[2020-09-28 06:42] LABS: Red Cell Distribution Width 26.7 % (11.8-14.3)
[2020-09-28] MEDS: InsuLIN REG 1unit/0.01ml Soln (100units/ml) SC SCH ×4 (07:00→22:00)
[2020-09-28] MEDS: ACCU-CHEK COMFORT CURVE STRIP VI SCH ×4 (07:07→22:49)
[2020-09-28 09:00] VITALS: BP 119/57
[2020-09-28] MEDS: PANTOPRAZOLE 40 MG TAB PO SCH (09:19)
[2020-09-28] MEDS: FUROSEMIDE 20 MG TAB PO SCH (09:19)
[2020-09-28] MEDS: FERROUS SULFATE 325mg EC TAB PO SCH ×2 (09:19→18:00)
[2020-09-28] MEDS: cefTRIAXone 1GM/50ML D5W 50 ML IV SCH (09:20)
[2020-09-28] MEDS: ENOXAPARIN SOD 40 MG/0.4 ML SYRINGE SC SCH (09:29)
[2020-09-28 13:00] VITALS: BP 104/53
[2020-09-28 17:12] VITALS: BP 129/69
[2020-09-28] MEDS ORDERED: MORPHINE SULFATE 4 MG/ML SYR/VIAL IV PRN (18:15)
[2020-09-28] MEDS ORDERED: MIDAZOLAM HCL 2MG/2ML 2ml VIAL (1mg/ml) IV PRN (18:15)
[2020-09-28] MEDS ORDERED: LABETALOL HCL 5 MG/ML 4ML SYRINGE IV PRN (18:15)
[2020-09-28] MEDS ORDERED: HYDROmorphone HCL 2 MG/ML VL IV PRN (18:15)
[2020-09-28] MEDS ORDERED: ePHEDrine SULFATE 50 MG/ML AMP IV PRN (18:15)
[2020-09-28] MEDS ORDERED: ONDANSETRON HCL 4 MG/2 ML VIAL IV PRN (18:15)
[2020-09-28] MEDS ORDERED: fentaNYL CITRATE 100 MCG/2 ML VL ONE (18:16)
[2020-09-28] MEDS ORDERED: MIDAZOLAM HCL 2MG/2ML 2ml VIAL (1mg/ml) ONE (18:16)
[2020-09-28 18:18] VITALS: BP 129/69
[2020-09-28] MEDS ORDERED: cefTRIAXone 1GM/50ML D5W 0 ML IV ONE (18:31)
[2020-09-28] MEDS ORDERED: DexAMETHasone SOD PHOS 10MG/1ML VIAL INJ ONE (18:49)
[2020-09-28] MEDS ORDERED: PROPOFOL 10 MG/ML 20 ML IV ONE (18:49)
[2020-09-28 22:00] VITALS: BP 112/44
[2020-09-29] MEDS: TEMAZEPAM 15 MG CAP PO PRN (00:20)
[2020-09-29 05:00] VITALS: BP 120/56
[2020-09-29] MEDS: InsuLIN REG 1unit/0.01ml Soln (100units/ml) SC SCH ×3 (06:31→17:00)
[2020-09-29] MEDS: ACCU-CHEK COMFORT CURVE STRIP VI SCH ×3 (06:31→17:00)
[2020-09-29 07:53] LABS: Mean Corpuscular Volume 63.7 fL (80.0-100.0)
[2020-09-29 07:58] LABS: Hematocrit 28.7 % (41.0-53.0); Hemoglobin 9.3 g/dL (13.5-17.5); Mean Corpuscular Hemoglobin 20.6 pg (28.0-32.0); Mean Corpuscular Hgb Conc. 32.4 g/dL (32.0-36.0); White Blood Cell 6.8 10^3/uL (4.4-10.8)
[2020-09-29 08:07] LABS: Red Cell Distribution Width 29.6 % (11.8-14.3)
[2020-09-29 08:09] LABS: Band Neutrophils % (manual) 0; Basophils % (manual) 0 (0.0-2.0); Blast Cells 0; Eosinophils % (manual) 0 (0-7); Metamyelocytes % 0; Monocytes % (manual) 0 (0-12); Myelocytes % 0; Promyelocytes % 0; Reactive Lymphocytes 0
[2020-09-29 08:22] VITALS: BP 133/74
[2020-09-29 08:49] LABS: Lymphocytes % (manual) 8 (10.0-50.0)
[2020-09-29] MEDS: PANTOPRAZOLE 40 MG TAB PO SCH (09:36)
[2020-09-29] MEDS: cefTRIAXone 1GM/50ML D5W 50 ML IV SCH (09:36)
[2020-09-29] MEDS: ENOXAPARIN SOD 40 MG/0.4 ML SYRINGE SC SCH (09:36)
[2020-09-29] MEDS: FERROUS SULFATE 325mg EC TAB PO SCH (09:36)
[2020-09-29] MEDS: FUROSEMIDE 20 MG TAB PO SCH (09:38)
[2020-09-29 12:47] VITALS: BP 133/67
[2020-09-29 16:31] VITALS: BP 113/43
== END 2020-09-29 16:55 | disposition hospice, home (50) | DRG 853 ==
LOC: ER 21:11 → EDBD 21:11 → ER 09-24 01:05 → TELE 09-24 02:31 → TELE-CENTR 09-24 06:13
PROVIDERS: ADMIT Nurse Practitioner; ATTEND Internal Medicine
PROC: 30233N1 Transfusion of Nonautologous Red Blood Cells into Peripheral Vein, Percutaneous Approach (ICD-10-PCS; principal; 2020-09-25)
PROC: 0JB70ZZ Excision of Back Subcutaneous Tissue and Fascia, Open Approach (ICD-10-PCS; 2020-09-28)
DX: A41.9 Sepsis, unspecified organism (principal); E43 Unspecified severe protein-calorie malnutrition; G82.20 Paraplegia, unspecified; Z16.23 Resistance to quinolones and fluoroquinolones; N39.0 Urinary tract infection, site not specified; B96.20 Unspecified Escherichia coli [E. coli] as the cause of diseases classified elsewhere; D64.9 Anemia, unspecified; E11.9 Type 2 diabetes mellitus without complications; Z74.01 Bed confinement status; Z93.3 Colostomy status; L89.150 Pressure ulcer of sacral region, unstageable; Z20.822 Contact with and (suspected) exposure to COVID-19; I10 Essential (primary) hypertension; Z80.42 Family history of malignant neoplasm of prostate; Z86.61 Personal history of infections of the central nervous system; Z90.49 Acquired absence of other specified parts of digestive tract; F32.9 Major depressive disorder, single episode, unspecified; Z88.1 Allergy status to other antibiotic agents; Z88.0 Allergy status to penicillin; B95.2 Enterococcus as the cause of diseases classified elsewhere; R56.9 Unspecified convulsions
CPT/HCPCS: 36415; 71045; 80053; 81001; 82962; 83605; 83735; 83880; 84484; 85007; 85025; 85027; 85610; 85730; 86850; 86900; 86901; 86920; 87040; 87077; 87086; 87186; 87205; 87426; 93005; G0378; J0696; J1100; J1815; J1956; J2250; J2704

== ENCOUNTER 2022-02-24 19:02 | Inpatient (IN) | payer OTHER, MEDICAID ==
[~2022-02-24] VITALS: Ht 165.1 cm; Wt 66.4 kg
[2022-02-24 20:01] LABS: Basophils # (auto) 0.1 10 ^3/uL (0-0.2); Eosinophils # (auto) 0.1 10 ^3/uL (0-0.8); Eosinophils % (auto) 0.3 % (0.0-7.0); Hematocrit 28.6 % (41.0-53.0); Red Blood Cells 3.84 10^6/uL (4.5-5.90); Red Cell Distribution Width 19.8 % (11.8-14.3)
[2022-02-24 20:03] LABS: Basophils % (auto) 0.6 % (0.0-2.0); Hemoglobin 8.5 g/dL (13.5-17.5); Lymphocytes # (auto) 1.4 10 ^3/uL (0.4-5.4); Lymphocytes % (auto) 6.9 % (10.0-50.0); Mean Corpuscular Hemoglobin 22.3 pg (28.0-32.0); Mean Corpuscular Hgb Conc. 29.9 g/dL (32.0-36.0); Mean Corpuscular Volume 74.5 fL (80.0-100.0); Monocytes # (auto) 0.7 10 ^3/uL (0-1.3); Monocytes % (auto) 3.3 % (0.0-12.0); Neutrophils # (auto) 17.8 10 ^3/uL (1.6-8.6); Neutrophils % (auto) 88.9 % (37.0-80.0); White Blood Cell 20.1 10^3/uL (4.4-10.8)
[2022-02-24 20:29] LABS: Albumin 2.4 g/dL (3.4-5.0); Calcium 8.4 mg/dL (8.5-10.1)
[2022-02-24 20:31] LABS: BUN/Creatinine Ratio 41.6
[2022-02-24 20:39] LABS: Lactic Acid w/Reflex 2.3 mmol/L (0.4-2.0)
[2022-02-24 20:41] LABS: Bilirubin, Total 0.3 mg/dL (0.2-1.0); Potassium 6.1 mmol/L (3.5-5.1)
[2022-02-24] MEDS ORDERED: InsuLIN REG 1unit/0.01ml Soln (100units/ml) IV ONE (21:15)
[2022-02-24] MEDS ORDERED: SODIUM CHLORIDE 0.9% 1,000 ML IV ONE (21:15)
[2022-02-24] MEDS ORDERED: cefTRIAXone SOD 1,000 MG VL IV ONE (21:15)
[2022-02-24] MEDS ORDERED: ALBUTEROL SULF 2.5 MG/0.5ML(0.5%) NEB SOLN NEB ONE (21:15)
[2022-02-24] MEDS ORDERED: SODIUM BICARBONATE 8.4 % INJ 50ML VIAL IV ONE (21:15)
[2022-02-24] MEDS ORDERED: CALCIUM GLUC 1,000mg/50ml-NS 50 ML IV ONE (21:15)
[2022-02-24] MEDS ORDERED: AZITHROMYCIN 500MG/ 250ML 250 ML IV ONE (21:45)
[2022-02-24] MEDS ORDERED: VANCOMYCIN PER PHARMACY 0 MG IV SCH (21:45)
[2022-02-24] MEDS ORDERED: ALBUMIN 25% 100 ML IV ONE (21:45)
[2022-02-24] MEDS ORDERED: ONDANSETRON HCL 4 MG/2 ML VIAL IV PRN (21:45)
[2022-02-24] MEDS ORDERED: MORPHINE SULFATE INJ 2 MG/ml SYRG IV PRN (21:45)
[2022-02-24] MEDS ORDERED: DOCUSATE SOD 100 MG CAP PO PRN (21:45)
[2022-02-24] MEDS ORDERED: DEXTROSE (50%) 50ML SYRG IV PRN (21:45)
[2022-02-24] MEDS ORDERED: HYDROcodone-ACET 5/325MG TAB PO PRN (21:45)
[2022-02-24] MEDS ORDERED: VANCOMYCIN 1GM/250ML 250 ML IV ONE (22:00)
[2022-02-24] MEDS: InsuLIN REG 1unit/0.01ml Soln (100units/ml) SC SCH (22:00)
[2022-02-25] VITALS (18 sets, daily range): BP systolic 86–144; BP diastolic 24–122
[2022-02-25] MEDS ORDERED: NITROGLYCERIN 0.4 MG SL TAB SL PRN (00:30)
[2022-02-25] MEDS ORDERED: MORPHINE SULFATE INJ 2 MG/ml SYRG IV PRN (00:30)
[2022-02-25] MEDS: ACCU-CHEK COMFORT CURVE STRIP VI SCH ×5 (00:36→22:58)
[2022-02-25] MEDS ORDERED: SODIUM BICARBONATE 8.4% INJ 50ML SYRINGE ONE (00:38)
[2022-02-25] MEDS: HEPARIN SODIUM (PORCINE) 5000 UNITS/ML 1ML VIAL SC SCH ×3 (01:16→22:56)
[2022-02-25] MEDS: SODIUM CHLORIDE 0.9% 1,000 ML IV SCH ×4 (01:25→21:00)
[2022-02-25 03:11] LABS: Urine Bacteria FEW /hpf (None Seen); Urine Blood 2+ /uL (Negative); Urine Hyaline Cast MANY /lpf (0 - 2); Urine Mucus FEW (None Seen); Urine Specific Gravity 1.014 (1.001-1.035); Urine WBC 2479 /hpf (0 - 3); Urine WBC Clumps PRESENT /hpf (None Seen)
[2022-02-25 06:42] LABS: Basophils # (auto) 0.1 10 ^3/uL (0-0.2); Eosinophils # (auto) 0 10 ^3/uL (0-0.8); Eosinophils % (auto) 0.1 % (0.0-7.0); Hemoglobin 7.6 g/dL (13.5-17.5); Monocytes # (auto) 1.3 10 ^3/uL (0-1.3)
[2022-02-25 06:44] LABS: Basophils % (auto) 0.5 % (0.0-2.0); Hematocrit 24.3 % (41.0-53.0); Lymphocytes # (auto) 1.8 10 ^3/uL (0.4-5.4); Lymphocytes % (auto) 8.8 % (10.0-50.0); Mean Corpuscular Hemoglobin 23.2 pg (28.0-32.0); Mean Corpuscular Hgb Conc. 31.2 g/dL (32.0-36.0); Mean Corpuscular Volume 74.4 fL (80.0-100.0); Monocytes % (auto) 6.2 % (0.0-12.0); Neutrophils # (auto) 17.1 10 ^3/uL (1.6-8.6); Neutrophils % (auto) 84.4 % (37.0-80.0); Red Blood Cells 3.27 10^6/uL (4.5-5.90); Red Cell Distribution Width 19.9 % (11.8-14.3); White Blood Cell 20.3 10^3/uL (4.4-10.8)
[2022-02-25] MEDS: InsuLIN REG 1unit/0.01ml Soln (100units/ml) SC SCH ×4 (06:56→23:00)
[2022-02-25 07:01] LABS: Albumin 2.5 g/dL (3.4-5.0); BUN/Creatinine Ratio 39.5; Calcium 8.4 mg/dL (8.5-10.1); Potassium 4.8 mmol/L (3.5-5.1)
[2022-02-25 07:04] LABS: Bilirubin, Total 0.2 mg/dL (0.2-1.0); Total Protein 7.5 g/dL (6.4-8.2)
[2022-02-25] MEDS: AZITHROMYCIN 500MG/ 250ML 250 ML IV SCH (10:07)
[2022-02-25] MEDS: FAMOTIDINE (10MG/ML) 2ML VL IV SCH (10:08)
[2022-02-25] MEDS ORDERED: SODIUM CHLORIDE 0.9% 1,000 ML IV ONE (15:00)
[2022-02-25] MEDS ORDERED: NOREPINEPHRINE 8 MG/250ML KIT 250 ML IV ONE (15:19)
[2022-02-25] MEDS: NOREPINEPHRINE 8 MG/250ML KIT 250 ML IV SCH (15:32)
[2022-02-25] MEDS ORDERED: HYALURONIDASE 150 UNIT/1 ML SUBCUT ONE (22:15)
[2022-02-25] MEDS: HYDROCORTONE 1% TOPICAL CREAM 30 GM TUBE TOP SCH (22:30)
[2022-02-25] MEDS: VANCOMYCIN 1GM/250ML 250 ML IV SCH (22:54)
[2022-02-26] VITALS (50 sets, daily range): BP systolic 88–137; BP diastolic 33–58
[2022-02-26 04:00] LABS: Basophils # (auto) 0.1 10 ^3/uL (0-0.2); Hematocrit 26.1 % (41.0-53.0); Monocytes # (auto) 0.9 10 ^3/uL (0-1.3); Nucleated Red Blood Cells % 0.1 %
[2022-02-26 04:02] LABS: Eosinophils # (auto) 0.1 10 ^3/uL (0-0.8); Eosinophils % (auto) 0.9 % (0.0-7.0); Lymphocytes # (auto) 1.9 10 ^3/uL (0.4-5.4); Lymphocytes % (auto) 16.2 % (10.0-50.0); Mean Corpuscular Hemoglobin 22.6 pg (28.0-32.0); Mean Corpuscular Hgb Conc. 30.6 g/dL (32.0-36.0); Monocytes % (auto) 7.3 % (0.0-12.0); Neutrophils # (auto) 8.7 10 ^3/uL (1.6-8.6); Neutrophils % (auto) 74.6 % (37.0-80.0); Red Blood Cells 3.52 10^6/uL (4.5-5.90); White Blood Cell 11.7 10^3/uL (4.4-10.8)
[2022-02-26 04:06] LABS: Red Cell Distribution Width 20.1 % (11.8-14.3)
[2022-02-26 04:13] LABS: Albumin 2.4 g/dL (3.4-5.0); BUN/Creatinine Ratio 40.2; Calcium 8.5 mg/dL (8.5-10.1); Potassium 4.3 mmol/L (3.5-5.1)
[2022-02-26 04:15] LABS: Bilirubin, Total 0.2 mg/dL (0.2-1.0); Total Protein 7.9 g/dL (6.4-8.2)
[2022-02-26] MEDS: InsuLIN REG 1unit/0.01ml Soln (100units/ml) SC SCH ×4 (06:56→21:54)
[2022-02-26] MEDS: ACCU-CHEK COMFORT CURVE STRIP VI SCH ×4 (06:56→21:44)
[2022-02-26] MEDS: HYDROCORTONE 1% TOPICAL CREAM 30 GM TUBE TOP SCH ×4 (07:30→21:39)
[2022-02-26] MEDS: AZITHROMYCIN 500MG/ 250ML 250 ML IV SCH (09:01)
[2022-02-26] MEDS: SODIUM CHLORIDE 0.9% 1,000 ML IV SCH ×2 (09:01→23:08)
[2022-02-26] MEDS: FAMOTIDINE (10MG/ML) 2ML VL IV SCH (09:02)
[2022-02-26] MEDS: HEPARIN SODIUM (PORCINE) 5000 UNITS/ML 1ML VIAL SC SCH ×2 (09:03→22:11)
[2022-02-26] MEDS: VANCOMYCIN 1GM/250ML 250 ML IV SCH (14:24)
[2022-02-26] MEDS: NOREPINEPHRINE 8 MG/250ML KIT 250 ML IV SCH (15:30)
[2022-02-27] VITALS (14 sets, daily range): BP systolic 104–163; BP diastolic 43–90
[2022-02-27] MEDS: HYDROCORTONE 1% TOPICAL CREAM 30 GM TUBE TOP SCH ×4 (06:31→21:34)
[2022-02-27] MEDS: SODIUM CHLORIDE 0.9% 1,000 ML IV SCH ×3 (06:32→21:33)
[2022-02-27] MEDS: InsuLIN REG 1unit/0.01ml Soln (100units/ml) SC SCH ×4 (06:32→21:33)
[2022-02-27] MEDS: ACCU-CHEK COMFORT CURVE STRIP VI SCH ×4 (06:32→21:33)
[2022-02-27] MEDS: VANCOMYCIN 1GM/250ML 250 ML IV SCH (09:00)
[2022-02-27] MEDS: AZITHROMYCIN 500MG/ 250ML 250 ML IV SCH (09:46)
[2022-02-27] MEDS: FAMOTIDINE (10MG/ML) 2ML VL IV SCH (09:46)
[2022-02-27] MEDS: HEPARIN SODIUM (PORCINE) 5000 UNITS/ML 1ML VIAL SC SCH ×2 (09:49→21:10)
[2022-02-27] MEDS: NOREPINEPHRINE 8 MG/250ML KIT 250 ML IV SCH (11:18)
[2022-02-28 04:11] LABS: Potassium 4.3 mmol/L (3.5-5.1)
[2022-02-28 04:18] LABS: BUN/Creatinine Ratio 21.8
[2022-02-28 05:00] VITALS: BP 146/66
[2022-02-28] MEDS: HYDROCORTONE 1% TOPICAL CREAM 30 GM TUBE TOP SCH ×3 (06:25→18:30)
[2022-02-28] MEDS: InsuLIN REG 1unit/0.01ml Soln (100units/ml) SC SCH ×3 (06:25→17:00)
[2022-02-28] MEDS: ACCU-CHEK COMFORT CURVE STRIP VI SCH ×3 (06:25→18:30)
[2022-02-28 09:00] VITALS: BP 155/27
[2022-02-28] MEDS: FAMOTIDINE (10MG/ML) 2ML VL IV SCH (09:14)
[2022-02-28] MEDS: AZITHROMYCIN 500MG/ 250ML 250 ML IV SCH (09:14)
[2022-02-28] MEDS ORDERED: MULTIPLE VITAMINS W/ MINERALS TAB PO SCH (10:00)
[2022-02-28] MEDS ORDERED: Juven Fruit Punch Powder PACKET 28.8gm PO SCH (10:00)
[2022-02-28] MEDS: HEPARIN SODIUM (PORCINE) 5000 UNITS/ML 1ML VIAL SC SCH (11:18)
[2022-02-28 13:00] VITALS: BP 144/61
[2022-02-28] MEDS: SODIUM CHLORIDE 0.9% 1,000 ML IV SCH (13:38)
[2022-02-28] MEDS ORDERED: NITR-87 PO (14:58)
[2022-02-28] MEDS ORDERED: CLIN-203 PO (15:00)
[2022-02-28 17:00] VITALS: BP 147/64
[2022-02-28 17:55] VITALS: BP 147/64
[2022-03-01] MEDS ORDERED: cefTRIAXone 1GM/50ML D5W 50 ML IV SCH (09:00)
== END 2022-02-28 21:40 | disposition home health service (06) | DRG 871 ==
LOC: ER 19:02 → TELE 02-25 00:21 → ICU WEST 02-25 16:41 → TELE-WESTW 02-27 16:58
PROVIDERS: ADMIT Nurse Practitioner Family; ATTEND Internal Medicine
DX: A41.9 Sepsis, unspecified organism (principal); E43 Unspecified severe protein-calorie malnutrition; L89.224 Pressure ulcer of left hip, stage 4; L89.214 Pressure ulcer of right hip, stage 4; L89.154 Pressure ulcer of sacral region, stage 4; L89.894 Pressure ulcer of other site, stage 4; G82.50 Quadriplegia, unspecified; N17.0 Acute kidney failure with tubular necrosis; R65.21 Severe sepsis with septic shock; E87.1 Hypo-osmolality and hyponatremia; N39.0 Urinary tract infection, site not specified; D63.8 Anemia in other chronic diseases classified elsewhere; D75.839 Thrombocytosis, unspecified; E11.22 Type 2 diabetes mellitus with diabetic chronic kidney disease; E87.5 Hyperkalemia; E88.09 Other disorders of plasma-protein metabolism, not elsewhere classified; F32.A Depression, unspecified; I12.9 Hypertensive chronic kidney disease with stage 1 through stage 4 chronic kidney disease, or unspecified chronic kidney disease; N18.9 Chronic kidney disease, unspecified; Z86.11 Personal history of tuberculosis; Z93.3 Colostomy status; Z98.2 Presence of cerebrospinal fluid drainage device; Z88.0 Allergy status to penicillin; Z88.8 Allergy status to other drugs, medicaments and biological substances; Z74.01 Bed confinement status; Z93.59 Other cystostomy status; Z68.24 Body mass index [BMI] 24.0-24.9, adult
CPT/HCPCS: 36415; 71045; 80048; 80053; 80202; 81001; 82565; 82962; 83036; 83605; 84484; 85025; 86850; 86900; 86901; 87040; 87081; 93005; 94640; 96365; 96375; 99291; G0378; J0696; J1815; J3490; P9047

== ENCOUNTER 2023-07-27 04:53 | Inpatient (IN) | payer OTHER, MEDICAID ==
[2023-07-27] VITALS (54 sets, daily range): BP systolic 83–142; BP diastolic 24–113; PULSE 98–130; RESP 18–40; TEMP 97–100.2; O2SAT 92–100
[~2023-07-27] VITALS: Ht 172.7 cm; Wt 69.2 kg
[~2023-07-27 04:53] MED LIST changes: -BENA10TA15 PO; -CIPR500T4 PO; +CLIN-203 PO; -FERR-20 PO; -FLUC200T35 PO; -FURO20TA3 PO; -LEVE750T3 PO; -MULT-1058 PO; +NITR-87 PO; -ONDA-155 SL; -PANT40TA2 PO; -PROBTAB12 PO; -SACC250C PO
[2023-07-27] MEDS: SODIUM CHLORIDE 0.9% 1,000 ML IV ONE (05:00)
[2023-07-27] MEDS: cefTRIAXone SOD 1,000 MG VL IV ONE (05:00)
[2023-07-27 05:23] LABS: Urine Epithelial Cast None Seen /hpf (<5)
[2023-07-27 05:37] LABS: Urine Bacteria MANY /hpf (None Seen); Urine Blood 1+ /uL (Negative); Urine Clarity CLOUDY (Clear); Urine Color Yellow (Yellow); Urine Mucus FEW (None Seen); Urine Protein, UAD 2+ (Negative); Urine Specific Gravity 1.019 (1.001-1.035); Urine Urobilinogen Normal (Negative); Urine WBC 487 /hpf (0 - 3); Urine WBC Clumps PRESENT /hpf (None Seen); Urine pH 5.5 (5.0-8.0)
[2023-07-27] MEDS: cefTRIAXone 1GM/50ML D5W 50 ML IV ONE (05:37)
[2023-07-27 05:52] LABS: Chloride 104 mmol/L (98-107); Potassium 3.8 mmol/L (3.5-5.1); Sodium 136 mmol/L (136-145)
[2023-07-27 05:53] LABS: Anion Gap 10 (5-15); Carbon Dioxide 22 mmol/L (20-30)
[2023-07-27 05:54] LABS: Basophils # (auto) 0 10 ^3/uL (0-0.2); Basophils % (auto) 0.4 % (0.0-2.0); Calcium 9.8 mg/dL (8.5-10.1); Eosinophils # (auto) 0 10 ^3/uL (0-0.8)
[2023-07-27 05:58] LABS: BUN/Creatinine Ratio 36.8 (10.0-20.0); Blood Urea Nitrogen 21 mg/dL (9-23); Eosinophils % (auto) 0.2 % (0.0-7.0); Glucose 248 mg/dL (74-106); Hematocrit 38.9 % (41.0-53.0); Hemoglobin 12.5 g/dL (13.5-17.5); Lymphocytes # (auto) 2.6 10 ^3/uL (0.4-5.4); Lymphocytes % (auto) 30.3 % (10.0-50.0); Mean Corpuscular Hemoglobin 24.7 pg (28.0-32.0); Mean Corpuscular Hgb Conc. 32.1 g/dL (32.0-36.0); Mean Corpuscular Volume 76.9 fL (80.0-100.0); Monocytes # (auto) 0.5 10 ^3/uL (0-1.3); Monocytes % (auto) 6.1 % (0.0-12.0); Neutrophils # (auto) 5.4 10 ^3/uL (1.6-8.6); Nucleated Red Blood Cells % 1.2 %; Red Blood Cells 5.06 10^6/uL (4.5-5.90); White Blood Cell 8.5 10^3/uL (4.4-10.8)
[2023-07-27 05:59] LABS: Red Cell Distribution Width 27.7 % (11.8-14.3)
[2023-07-27 06:14] LABS: Lactic Acid w/Reflex 3.7 mmol/L (0.4-2.0)
[2023-07-27] MEDS ORDERED: DEXTROSE (50%) 50ML SYRG IV PRN (06:45)
[2023-07-27] MEDS ORDERED: IPRATROPIUM BROM 0.5 MG/2.5ML INH SOL NEB PRN (06:45)
[2023-07-27] MEDS: AZITHROMYCIN 500MG/ 250ML 250 ML IV SCH (07:04)
[2023-07-27] MEDS: methylPREDNISolone SOD SUCC 125 MG/2 ML VL IV SCH (07:06)
[2023-07-27 07:28] LABS: Platelet Estimate Adequate
[2023-07-27 07:29] LABS: Anisocytosis Moderate; Hypochromia Slight
[2023-07-27] MEDS: ACCU-CHEK COMFORT CURVE STRIP VI SCH (08:14)
[2023-07-27] MEDS: InsuLIN REG 1unit/0.01ml Soln (100units/ml) SC SCH (08:14)
[2023-07-27 08:42] LABS: Base Excess -10.6 mmol/L (-2.0-2.0)
[2023-07-27] MEDS ORDERED: cefTRIAXone 1GM/50ML D5W 50 ML IV SCH (10:00)
[2023-07-27] MEDS: ETOMIDATE (2MG/ML) 20ML VIAL IV ONE (10:02)
[2023-07-27] MEDS: SUCCINYLCHOLINE CHLORIDE 20 MG/ML 10ML VIAL IV ONE (10:02)
[2023-07-27] MEDS: MIDAZOLAM DRIP 50 mg/50mL 50 ML IV ONE (10:05)
[2023-07-27] MEDS: NOREPINEPHRINE 8 MG/250ML KIT 250 ML IV SCH (10:05)
[2023-07-27] MEDS: MIDAZOLAM DRIP 50 mg/50mL 50 ML IV SCH (10:07)
[2023-07-27] MEDS: NOREPINEPHRINE 8 MG/250ML KIT 250 ML IV ONE (10:08)
[2023-07-27] MEDS: ENOXAPARIN SOD 40 MG/0.4 ML SYRINGE SC SCH (10:24)
[2023-07-27] MEDS: cefTRIAXone 1GM/50ML D5W 50 ML IV SCH (10:44)
[2023-07-27] MEDS: IPRATROPIUM BROM 0.5 MG/2.5ML INH SOL NEB SCH (10:57)
[2023-07-27] MEDS: ALBUTEROL SULF 2.5 MG/0.5ML(0.5%) NEB SOLN NEB SCH (10:57)
[2023-07-27 12:31] LABS: Base Excess -9.5 mmol/L (-2.0-2.0)
[2023-07-27 12:35] LABS: Rapid Influenza A Negative (Negative); Rapid Influenza B Negative (Negative)
[2023-07-27 12:36] LABS: COVID19 ANTIGEN SOFIA FIA NEGATIVE (NEGATIVE)
[2023-07-27 12:39] LABS: INR 1.22 (0.9-1.15); Prothrombin Time 12.6 sec (9.3-11.8)
[2023-07-27] MEDS: PHENYLEPHRINE IV 250 ML IV ONE (13:33)
[2023-07-27] MEDS: PHENYLEPHRINE IV 250 ML IV SCH (13:40)
[2023-07-27] MEDS: VASOPRESSIN 20 UNITS in SODIUM CHL 0.9% 99 ML IV SCH (15:00)
[2023-07-27] MEDS ORDERED: MEROPENEM 1GM IVPB 100 ML IV ONE ×2 (15:00→16:15)
[2023-07-27] MEDS ORDERED: VANCOMYCIN PER PHARMACY 0 MG IV SCH (15:00)
[2023-07-27] MEDS: LIDOCAINE 1% (LOCAL ANESTH.) PF 5ml SDV ID ONE (15:45)
[2023-07-27] MEDS: PANTOPRAZOLE 40 MG/10 ML VIAL INJ IV ONE (16:29)
[2023-07-27] MEDS: fentaNYL Drip 2500mCg/250mlNS 250 ML IV SCH (16:30)
[2023-07-27] MEDS: SODIUM BICARB 50mEq/50ml Vial 50 ML in SOD CHL 0.45% 1,000 ML IV SCH (17:30)
[2023-07-27] MEDS: VANCOMYCIN 1GM/200ML 200 ML IV SCH (18:00)
[2023-07-27] MEDS: PHENYLEPHRINE INJ 80 MG in SODIUM CHL 0.9% 242 ML IV SCH (18:11)
[2023-07-27] MEDS: NOREPINEPHRINE BITARTRATE 32 MG in SODIUM CHL 0.9% 218 ML IV SCH (18:55)
[2023-07-27] MEDS: MEROPENEM 1GM IVPB 100 ML IV ONE (19:48)
[2023-07-27] MEDS: SODIUM CHLOR 0.9% PF (SALINE LOCK) 10ML VIAL/SYR IV SCH (21:01)
[2023-07-27] MEDS: MEROPENEM 1GM IVPB 100 ML IV SCH (22:14)
[2023-07-28] VITALS (95 sets, daily range): BP systolic 89–136; BP diastolic 41–82; PULSE 74–135; RESP 20; TEMP 98.2–99.7; O2SAT 97–100
[2023-07-28 05:14] LABS: Hemoglobin 11.6 g/dL (13.5-17.5)
[2023-07-28 05:16] LABS: Mean Corpuscular Hemoglobin 24.5 pg (28.0-32.0); Mean Corpuscular Hgb Conc. 32.2 g/dL (32.0-36.0); Mean Corpuscular Volume 76.1 fL (80.0-100.0); Red Blood Cells 4.73 10^6/uL (4.5-5.90); White Blood Cell 29.8 10^3/uL (4.4-10.8)
[2023-07-28 05:25] LABS: Red Cell Distribution Width 27.6 % (11.8-14.3)
[2023-07-28 05:27] LABS: Alanine Aminotransferase 24 U/L (7-40); Alkaline Phosphatase 80 U/L (46-116); Anion Gap 12 (5-15); BUN/Creatinine Ratio 44.1 (10.0-20.0); Blood Urea Nitrogen 30 mg/dL (9-23); Calcium 8.9 mg/dL (8.7-10.4); Carbon Dioxide 19 mmol/L (20-30); Chloride 105 mmol/L (98-107); Glucose 175 mg/dL (74-106); Magnesium 1.1 mg/dL (1.6-2.6); Potassium 4.3 mmol/L (3.5-5.1); Sodium 136 mmol/L (136-145)
[2023-07-28 05:28] LABS: Band Neutrophils % (manual) 0; Basophils % (manual) 0 (0.0-2.0); Blast Cells 0; Eosinophils % (manual) 0 (0-7); Metamyelocytes % 0; Myelocytes % 0; Promyelocytes % 0; Reactive Lymphocytes 0
[2023-07-28 05:29] LABS: Albumin 3.1 g/dL (3.2-4.8); Aspartate Aminotransferase 40 U/L (13-40); Bilirubin, Total 0.4 mg/dL (0.2-1.0); Total Protein 5.4 g/dL (5.7-8.2)
[2023-07-28 05:37] LABS: Lactic Acid w/Reflex 4.1 mmol/L (0.4-2.0)
[2023-07-28 06:15] LABS: Lymphocytes % (manual) 7 (10.0-50.0); Monocytes % (manual) 3 (0-12); Platelet Estimate Adequate
[2023-07-28] MEDS: MAGNESIUM SULFATE 1GM/100ML 100 ML IV SCH (06:16)
[2023-07-28] MEDS: PANTOPRAZOLE 40 MG/10 ML VIAL INJ IV SCH (09:09)
[2023-07-28] MEDS: ENOXAPARIN SOD 40 MG/0.4 ML SYRINGE SC SCH (09:10)
[2023-07-28] MEDS: AMIODARONE BOLUS KIT 100 ML IV ONE (09:12)
[2023-07-28] MEDS: ENOXAPARIN SOD 60 MG/0.6 ML SYRINGE SC SCH (10:00)
[2023-07-28] MEDS ORDERED: ENOXAPARIN SOD 40 MG/0.4 ML SYRINGE SC SCH (10:00)
[2023-07-28] MEDS ORDERED: DEXA2TAB PO (10:51)
[2023-07-28] MEDS ORDERED: OMEP1CAP70 PO (10:51)
[2023-07-28] MEDS ORDERED: BENA-19 PO (10:51)
[2023-07-28] MEDS ORDERED: METF-372 PO (10:51)
[2023-07-28] MEDS: AMIODARONE 450mg/250ml AE 250 ML IV SCH (14:30)
[2023-07-28] MEDS: SODIUM BICARB 50mEq/50ml Vial 50 ML in SOD CHL 0.45% 1,000 ML IV SCH (15:45)
[2023-07-29] VITALS (112 sets, daily range): BP systolic 81–133; BP diastolic 25–70; PULSE 85–103; RESP 8–22; TEMP 98.1–100.2; O2SAT 96–100
[2023-07-29 06:12] LABS: Chloride 104 mmol/L (98-107); Potassium 4.1 mmol/L (3.5-5.1); Sodium 135 mmol/L (136-145)
[2023-07-29 06:13] LABS: Anion Gap 11 (5-15); Carbon Dioxide 20 mmol/L (20-30)
[2023-07-29 06:14] LABS: Calcium 8.6 mg/dL (8.7-10.4)
[2023-07-29 06:16] LABS: Hematocrit 33.3 % (41.0-53.0); Hemoglobin 10.6 g/dL (13.5-17.5); Mean Corpuscular Hemoglobin 24.6 pg (28.0-32.0); Mean Corpuscular Hgb Conc. 31.8 g/dL (32.0-36.0); Mean Corpuscular Volume 77.4 fL (80.0-100.0); White Blood Cell 22.3 10^3/uL (4.4-10.8)
[2023-07-29 06:18] LABS: Blood Urea Nitrogen 18 mg/dL (9-23); Glucose 131 mg/dL (74-106)
[2023-07-29 07:16] LABS: Red Cell Distribution Width 27.7 % (11.8-14.3)
[2023-07-29 07:17] LABS: Basophils % (manual) 0 (0.0-2.0); Blast Cells 0; Metamyelocytes % 0; Myelocytes % 0; Promyelocytes % 0; Reactive Lymphocytes 0
[2023-07-29 08:14] LABS: Base Excess -3.4 mmol/L (-2.0-2.0)
[2023-07-29 08:29] LABS: Band Neutrophils % (manual) 5; Eosinophils % (manual) 1 (0-7); Lymphocytes % (manual) 7 (10.0-50.0); Monocytes % (manual) 3 (0-12)
[2023-07-29 08:30] LABS: Anisocytosis Moderate; Hypochromia Slight; Platelet Estimate Adequate
[2023-07-30] VITALS (108 sets, daily range): BP systolic 96–146; BP diastolic 50–67; PULSE 74–97; RESP 16–21; TEMP 97–99.1; O2SAT 20–100
[2023-07-30 03:40] LABS: Basophils # (auto) 0 10 ^3/uL (0-0.2); Basophils % (auto) 0.1 % (0.0-2.0); Eosinophils # (auto) 0.1 10 ^3/uL (0-0.8); Hemoglobin 9.7 g/dL (13.5-17.5); Lymphocytes # (auto) 1.1 10 ^3/uL (0.4-5.4); Mean Corpuscular Hemoglobin 24.7 pg (28.0-32.0)
[2023-07-30 03:48] LABS: Alanine Aminotransferase 19 U/L (7-40); Alkaline Phosphatase 86 U/L (46-116); Anion Gap 8 (5-15); Aspartate Aminotransferase 21 U/L (13-40); BUN/Creatinine Ratio 45.7 (10.0-20.0); Blood Urea Nitrogen 21 mg/dL (9-23); Calcium 8.1 mg/dL (8.7-10.4); Carbon Dioxide 22 mmol/L (20-30); Chloride 105 mmol/L (98-107); Glucose 134 mg/dL (74-106); Potassium 3.5 mmol/L (3.5-5.1); Sodium 135 mmol/L (136-145)
[2023-07-30 03:49] LABS: Albumin 2.5 g/dL (3.2-4.8); Bilirubin, Total 0.6 mg/dL (0.2-1.0); Total Protein 4.5 g/dL (5.7-8.2)
[2023-07-30 03:52] LABS: Eosinophils % (auto) 0.5 % (0.0-7.0); Hematocrit 29.5 % (41.0-53.0); Lymphocytes % (auto) 8.7 % (10.0-50.0); Mean Corpuscular Hgb Conc. 32.7 g/dL (32.0-36.0); Mean Corpuscular Volume 75.5 fL (80.0-100.0); Monocytes # (auto) 0.5 10 ^3/uL (0-1.3); Neutrophils # (auto) 10.8 10 ^3/uL (1.6-8.6); Neutrophils % (auto) 86.7 % (37.0-80.0); Nucleated Red Blood Cells % 0.3 %; Red Blood Cells 3.91 10^6/uL (4.5-5.90); White Blood Cell 12.5 10^3/uL (4.4-10.8)
[2023-07-30 03:53] LABS: Red Cell Distribution Width 26.4 % (11.8-14.3)
[2023-07-30 04:51] LABS: Hypochromia Slight; Platelet Estimate Adequate
[2023-07-31] VITALS (104 sets, daily range): BP systolic 78–140; BP diastolic 45–75; PULSE 75–95; RESP 17–24; TEMP 96.1–98.5; O2SAT 97–100
[2023-07-31 04:13] LABS: Hemoglobin 9.2 g/dL (13.5-17.5)
[2023-07-31 04:15] LABS: Hematocrit 27.7 % (41.0-53.0); Mean Corpuscular Hemoglobin 25.2 pg (28.0-32.0); Mean Corpuscular Hgb Conc. 33.3 g/dL (32.0-36.0); Mean Corpuscular Volume 75.7 fL (80.0-100.0); Red Blood Cells 3.66 10^6/uL (4.5-5.90); White Blood Cell 8.1 10^3/uL (4.4-10.8)
[2023-07-31 04:24] LABS: Red Cell Distribution Width 25.9 % (11.8-14.3)
[2023-07-31 04:25] LABS: Basophils % (manual) 0 (0.0-2.0); Blast Cells 0; Eosinophils % (manual) 0 (0-7); Metamyelocytes % 0; Myelocytes % 0; Promyelocytes % 0; Reactive Lymphocytes 0
[2023-07-31 04:43] LABS: Alanine Aminotransferase 16 U/L (7-40); Albumin 2.2 g/dL (3.2-4.8); Alkaline Phosphatase 78 U/L (46-116); Anion Gap 12 (5-15); Aspartate Aminotransferase 22 U/L (13-40); BUN/Creatinine Ratio 37.5 (10.0-20.0); Bilirubin, Total 0.5 mg/dL (0.2-1.0); Blood Urea Nitrogen 15 mg/dL (9-23); Calcium 8.2 mg/dL (8.7-10.4); Carbon Dioxide 19 mmol/L (20-30); Chloride 105 mmol/L (98-107); Glucose 132 mg/dL (74-106); Potassium 3.1 mmol/L (3.5-5.1); Sodium 136 mmol/L (136-145); Total Protein 4.2 g/dL (5.7-8.2)
[2023-07-31] MEDS: POTASSIUM CHLORIDE 40 MEQ, LIDOCAINE 1% (LOCAL ANESTH.) 4 ML in SODIUM CHL 0.9% 250 ML IV ONE (06:00)
[2023-07-31 07:00] LABS: Band Neutrophils % (manual) 8; Lymphocytes % (manual) 9 (10.0-50.0); Monocytes % (manual) 5 (0-12); Platelet Estimate Adequate
[2023-07-31 07:01] LABS: Anisocytosis Moderate
[2023-07-31 08:18] LABS: Base Excess -4.9 mmol/L (-2.0-2.0)
[2023-07-31] MEDS: POTASSIUM CHL 20MEQ/100ML 200 ML IV ONE (08:31)
[2023-07-31] MEDS: FUROSEMIDE 20 MG/2 ML VIAL IV ONE (10:06)
[2023-07-31] MEDS: POTASSIUM CHL 20MEQ/100ML 100 ML IV ONE (10:07)
[2023-07-31] MEDS: ENOXAPARIN SOD 60 MG/0.6 ML SYRINGE SC ONE (13:45)
[2023-07-31] MEDS: VANCOMYCIN 500 MG in D5W 5% 100 ML IV ONE (17:08)
[2023-07-31] MEDS: InsuLIN REG 1unit/0.01ml Soln (100units/ml) SC SCH (18:00)
[2023-07-31] MEDS: ACCU-CHEK COMFORT CURVE STRIP VI SCH (18:28)
[2023-07-31] MEDS ORDERED: ENOXAPARIN SOD 60 MG/0.6 ML SYRINGE SC SCH (22:00)
[2023-08-01] VITALS (106 sets, daily range): BP systolic 87–121; BP diastolic 48–73; PULSE 90–103; RESP 16–25; TEMP 95.2–98.2; O2SAT 100
[2023-08-01 03:34] LABS: Basophils # (auto) 0 10 ^3/uL (0-0.2); Basophils % (auto) 0.3 % (0.0-2.0); Hemoglobin 9.3 g/dL (13.5-17.5); Red Cell Distribution Width 25.6 % (11.8-14.3)
[2023-08-01 03:37] LABS: Eosinophils # (auto) 0.1 10 ^3/uL (0-0.8); Eosinophils % (auto) 0.8 % (0.0-7.0); Hematocrit 28.1 % (41.0-53.0); Lymphocytes # (auto) 0.7 10 ^3/uL (0.4-5.4); Lymphocytes % (auto) 10.6 % (10.0-50.0); Mean Corpuscular Hemoglobin 25.3 pg (28.0-32.0); Mean Corpuscular Hgb Conc. 33.2 g/dL (32.0-36.0); Mean Corpuscular Volume 76.3 fL (80.0-100.0); Monocytes # (auto) 0.1 10 ^3/uL (0-1.3); Neutrophils # (auto) 6.1 10 ^3/uL (1.6-8.6); Neutrophils % (auto) 86.3 % (37.0-80.0); Nucleated Red Blood Cells % 0.1 %; Red Blood Cells 3.68 10^6/uL (4.5-5.90); White Blood Cell 7.1 10^3/uL (4.4-10.8)
[2023-08-01 03:46] LABS: Chloride 100 mmol/L (98-107); Potassium 3.7 mmol/L (3.5-5.1)
[2023-08-01 03:47] LABS: Anion Gap 8 (5-15); Carbon Dioxide 22 mmol/L (20-30)
[2023-08-01 03:48] LABS: Calcium 8.1 mg/dL (8.7-10.4)
[2023-08-01 03:52] LABS: BUN/Creatinine Ratio 24.4 (10.0-20.0); Blood Urea Nitrogen 11 mg/dL (9-23)
[2023-08-01 04:04] LABS: Glucose 292 mg/dL (74-106); Sodium 130 mmol/L (136-145)
[2023-08-01 07:08] LABS: Base Excess -3.7 mmol/L (-2.0-2.0)
[2023-08-01] MEDS: ENOXAPARIN SOD 60 MG/0.6 ML SYRINGE SC SCH (11:13)
[2023-08-01] MEDS: FUROSEMIDE 20 MG/2 ML VIAL IV ONE (11:15)
[2023-08-01] MEDS: DexmedeTOMIDine 200 MCG in D5W 5% 48 ML IV SCH (11:15)
[2023-08-01] MEDS: VANCOMYCIN 500 MG in D5W 5% 100 ML IV SCH (11:27)
[2023-08-02] VITALS (113 sets, daily range): BP systolic 61–193; BP diastolic 36–93; PULSE 89–115; RESP 19–26; TEMP 95.5–98.4; O2SAT 98–100
[2023-08-02 04:11] LABS: Basophils # (auto) 0 10 ^3/uL (0-0.2); Basophils % (auto) 0.3 % (0.0-2.0); Eosinophils # (auto) 0.1 10 ^3/uL (0-0.8); Hemoglobin 10.6 g/dL (13.5-17.5); Monocytes # (auto) 0.4 10 ^3/uL (0-1.3)
[2023-08-02 04:15] LABS: Eosinophils % (auto) 0.6 % (0.0-7.0); Hematocrit 31.9 % (41.0-53.0); Lymphocytes # (auto) 1.5 10 ^3/uL (0.4-5.4); Lymphocytes % (auto) 15.5 % (10.0-50.0); Mean Corpuscular Hemoglobin 25.2 pg (28.0-32.0); Mean Corpuscular Hgb Conc. 33.1 g/dL (32.0-36.0); Mean Corpuscular Volume 76.2 fL (80.0-100.0); Monocytes % (auto) 3.7 % (0.0-12.0); Neutrophils # (auto) 7.8 10 ^3/uL (1.6-8.6); Neutrophils % (auto) 79.9 % (37.0-80.0); Nucleated Red Blood Cells % 0.2 %; Red Blood Cells 4.19 10^6/uL (4.5-5.90); Red Cell Distribution Width 25.1 % (11.8-14.3); White Blood Cell 9.8 10^3/uL (4.4-10.8)
[2023-08-02 04:20] LABS: Anion Gap 7 (5-15); Calcium 8.6 mg/dL (8.7-10.4); Carbon Dioxide 25 mmol/L (20-30); Chloride 103 mmol/L (98-107); Potassium 3.4 mmol/L (3.5-5.1)
[2023-08-02 04:26] LABS: BUN/Creatinine Ratio 20.9 (10.0-20.0); Blood Urea Nitrogen 9 mg/dL (9-23)
[2023-08-02 04:34] LABS: Glucose 119 mg/dL (74-106); Sodium 135 mmol/L (136-145)
[2023-08-02] MEDS: POTASSIUM CHL 20MEQ/100ML 100 ML IV ONE (10:23)
[2023-08-02] MEDS ORDERED: MIDODRINE HCL 10 MG TAB PO SCH (12:00)
[2023-08-02] MEDS: MIDODRINE HCL 10 MG TAB PO ONE (12:24)
[2023-08-02] MEDS: CEFTRIAXONE SODIUM 2 GM in D5W 5% 100 ML IV SCH (14:13)
[2023-08-02] MEDS: MIDODRINE HCL 10 MG TAB PO SCH (17:56)
[2023-08-02] MEDS: Jevity 1.2 Cal/Fiber 1 Liter GT SCH (18:02)
[2023-08-03] VITALS (106 sets, daily range): BP systolic 88–125; BP diastolic 42–74; PULSE 88–98; RESP 18–24; TEMP 97.6–99; O2SAT 90–100
[2023-08-03 04:07] LABS: Hematocrit 33.1 % (41.0-53.0); Mean Corpuscular Hgb Conc. 33.2 g/dL (32.0-36.0); Mean Corpuscular Volume 75.3 fL (80.0-100.0); White Blood Cell 15.7 10^3/uL (4.4-10.8)
[2023-08-03 04:23] LABS: Alanine Aminotransferase 16 U/L (7-40); Albumin 2.5 g/dL (3.2-4.8); Alkaline Phosphatase 93 U/L (46-116); Anion Gap 8 (5-15); Aspartate Aminotransferase 19 U/L (13-40); BUN/Creatinine Ratio 20.5 (10.0-20.0); Blood Urea Nitrogen 9 mg/dL (9-23); Calcium 8.7 mg/dL (8.7-10.4); Carbon Dioxide 23 mmol/L (20-30); Chloride 104 mmol/L (98-107); Glucose 141 mg/dL (74-106); Potassium 3.7 mmol/L (3.5-5.1); Sodium 135 mmol/L (136-145)
[2023-08-03 04:24] LABS: Bilirubin, Total 0.3 mg/dL (0.2-1.0); Total Protein 4.8 g/dL (5.7-8.2)
[2023-08-03 04:30] LABS: Red Cell Distribution Width 25.4 % (11.8-14.3)
[2023-08-03 04:31] LABS: Basophils % (manual) 0 (0.0-2.0); Blast Cells 0; Metamyelocytes % 0; Myelocytes % 0; Promyelocytes % 0; Reactive Lymphocytes 0
[2023-08-03 05:09] LABS: Band Neutrophils % (manual) 3; Eosinophils % (manual) 1 (0-7); Lymphocytes % (manual) 20 (10.0-50.0); Monocytes % (manual) 3 (0-12)
[2023-08-03 05:10] LABS: Platelet Estimate Adequate
[2023-08-03 07:10] LABS: Base Excess 0.5 mmol/L (-2.0-2.0)
[2023-08-03] MEDS ORDERED: levoFLOXacin 500MG 100 ML IV SCH (10:00)
[2023-08-03] MEDS: FLUCONAZOLE 200MG/100ML 100 ML IV ONE (12:18)
[2023-08-03] MEDS: MEROPENEM 1GM IVPB 100 ML IV SCH (14:00)
[2023-08-03] MEDS: MEROPENEM 1GM IVPB 100 ML IV ONE (14:55)
[2023-08-04] VITALS (105 sets, daily range): BP systolic 80–133; BP diastolic 26–71; PULSE 85–96; RESP 13–29; TEMP 97.7–98.7; O2SAT 97–100
[2023-08-04 04:05] LABS: White Blood Cell 10.7 10^3/uL (4.4-10.8)
[2023-08-04 04:08] LABS: Hematocrit 29.7 % (41.0-53.0); Mean Corpuscular Hemoglobin 25.4 pg (28.0-32.0); Mean Corpuscular Hgb Conc. 33.5 g/dL (32.0-36.0); Mean Corpuscular Volume 75.7 fL (80.0-100.0); Red Blood Cells 3.93 10^6/uL (4.5-5.90)
[2023-08-04 04:18] LABS: Red Cell Distribution Width 25.2 % (11.8-14.3)
[2023-08-04 04:19] LABS: Band Neutrophils % (manual) 0; Basophils % (manual) 0 (0.0-2.0); Blast Cells 0; Eosinophils % (manual) 0 (0-7); Metamyelocytes % 0; Myelocytes % 0; Promyelocytes % 0; Reactive Lymphocytes 0
[2023-08-04 04:29] LABS: Alanine Aminotransferase 14 U/L (7-40); Albumin 2.3 g/dL (3.2-4.8); Alkaline Phosphatase 99 U/L (46-116); Anion Gap 7 (5-15); BUN/Creatinine Ratio 22.5 (10.0-20.0); Blood Urea Nitrogen 9 mg/dL (9-23); Calcium 8.4 mg/dL (8.7-10.4); Carbon Dioxide 23 mmol/L (20-30); Chloride 105 mmol/L (98-107); Glucose 159 mg/dL (74-106); Potassium 3.8 mmol/L (3.5-5.1); Sodium 135 mmol/L (136-145)
[2023-08-04 04:30] LABS: Aspartate Aminotransferase 18 U/L (13-40); Bilirubin, Total 0.4 mg/dL (0.2-1.0); Total Protein 4.6 g/dL (5.7-8.2)
[2023-08-04 05:36] LABS: Anisocytosis Slight; Lymphocytes % (manual) 21 (10.0-50.0); Monocytes % (manual) 2 (0-12); Platelet Estimate Adequate
[2023-08-04 08:28] LABS: Base Excess 2.1 mmol/L (-2.0-2.0)
[2023-08-04] MEDS: FLUCONAZOLE 200MG/100ML 100 ML IV SCH (10:51)
[2023-08-04] MEDS: FUROSEMIDE 20 MG/2 ML VIAL IV ONE (16:25)
[2023-08-04] MEDS: POTASSIUM EFFERVESENT TAB 25 MEQ GT ONE (16:25)
[2023-08-04] MEDS: MIDODRINE HCL 10 MG TAB PO SCH (17:38)
[2023-08-04] MEDS: AMIODARONE HCL 200 MG TAB PO SCH (21:52)
[2023-08-05] VITALS (108 sets, daily range): BP systolic 78–157; BP diastolic 19–95; PULSE 72–99; RESP 16–34; TEMP 97–98.5; O2SAT 92–100
[2023-08-05 04:01] LABS: Hemoglobin 10.7 g/dL (13.5-17.5)
[2023-08-05 04:04] LABS: Hematocrit 32.5 % (41.0-53.0); Mean Corpuscular Volume 75.6 fL (80.0-100.0); White Blood Cell 12.9 10^3/uL (4.4-10.8)
[2023-08-05 04:10] LABS: Red Cell Distribution Width 24.9 % (11.8-14.3)
[2023-08-05 04:12] LABS: Band Neutrophils % (manual) 0; Basophils % (manual) 0 (0.0-2.0); Blast Cells 0; Eosinophils % (manual) 0 (0-7); Metamyelocytes % 0; Myelocytes % 0; Promyelocytes % 0; Reactive Lymphocytes 0
[2023-08-05 04:19] LABS: Alanine Aminotransferase 16 U/L (7-40); Albumin 2.3 g/dL (3.2-4.8); Alkaline Phosphatase 104 U/L (46-116); Anion Gap 7 (5-15); Aspartate Aminotransferase 26 U/L (13-40); BUN/Creatinine Ratio 26.8 (10.0-20.0); Bilirubin, Total 0.5 mg/dL (0.2-1.0); Blood Urea Nitrogen 11 mg/dL (9-23); Calcium 8.4 mg/dL (8.7-10.4); Carbon Dioxide 25 mmol/L (20-30); Chloride 104 mmol/L (98-107); Glucose 123 mg/dL (74-106); Potassium 4.2 mmol/L (3.5-5.1); Sodium 136 mmol/L (136-145); Total Protein 4.8 g/dL (5.7-8.2)
[2023-08-05 05:12] LABS: Lymphocytes % (manual) 15 (10.0-50.0); Monocytes % (manual) 5 (0-12); Platelet Estimate Adequate
[2023-08-05 07:34] LABS: Base Excess 2.2 mmol/L (-2.0-2.0)
[2023-08-05 10:43] LABS: Base Excess -0.4 mmol/L (-2.0-2.0)
[2023-08-05] MEDS: MEROPENEM 1GM IVPB 50 ML IV SCH (14:10)
[2023-08-06] VITALS (107 sets, daily range): BP systolic 87–147; BP diastolic 24–78; PULSE 65–112; RESP 9–47; TEMP 96.4–98.2; O2SAT 92–100
[2023-08-06 03:42] LABS: Hemoglobin 9.2 g/dL (13.5-17.5); White Blood Cell 6.6 10^3/uL (4.4-10.8)
[2023-08-06 03:45] LABS: Hematocrit 27.8 % (41.0-53.0); Mean Corpuscular Hemoglobin 25.2 pg (28.0-32.0); Mean Corpuscular Hgb Conc. 33.2 g/dL (32.0-36.0); Mean Corpuscular Volume 75.9 fL (80.0-100.0); Red Blood Cells 3.66 10^6/uL (4.5-5.90)
[2023-08-06 03:46] LABS: Chloride 106 mmol/L (98-107); Potassium 3.6 mmol/L (3.5-5.1); Sodium 138 mmol/L (136-145)
[2023-08-06 03:47] LABS: Anion Gap 6 (5-15); Carbon Dioxide 26 mmol/L (20-30)
[2023-08-06 03:52] LABS: BUN/Creatinine Ratio 30.6 (10.0-20.0); Blood Urea Nitrogen 11 mg/dL (9-23); Glucose 72 mg/dL (74-106)
[2023-08-06 03:56] LABS: Red Cell Distribution Width 24.7 % (11.8-14.3)
[2023-08-06 03:57] LABS: Basophils % (manual) 0 (0.0-2.0); Blast Cells 0; Metamyelocytes % 0; Myelocytes % 0; Promyelocytes % 0; Reactive Lymphocytes 0
[2023-08-06 05:23] LABS: Anisocytosis Moderate; Band Neutrophils % (manual) 3; Eosinophils % (manual) 1 (0-7); Lymphocytes % (manual) 8 (10.0-50.0); Monocytes % (manual) 1 (0-12); Ovalocytes FEW; Platelet Estimate Adequate; Polychromasia Slight
[2023-08-06] MEDS: DEXTROSE (50%) 50ML SYRG IV PRN (18:31)
[2023-08-06 18:37] LABS: Base Excess 1.9 mmol/L (-2.0-2.0)
[2023-08-06] MEDS: FUROSEMIDE 20 MG/2 ML VIAL IV ONE (18:45)
[2023-08-06] MEDS: FUROSEMIDE 20 MG/2 ML VIAL ONE (18:51)
[2023-08-07] VITALS (108 sets, daily range): BP systolic 86–153; BP diastolic 38–123; PULSE 86–107; RESP 13–100; TEMP 96–98.3; O2SAT 91–100
[2023-08-07 04:13] LABS: Basophils # (auto) 0.1 10 ^3/uL (0-0.2); Eosinophils # (auto) 0.1 10 ^3/uL (0-0.8); Hemoglobin 9.7 g/dL (13.5-17.5); Monocytes # (auto) 0.8 10 ^3/uL (0-1.3); Red Blood Cells 3.79 10^6/uL (4.5-5.90); White Blood Cell 7.5 10^3/uL (4.4-10.8)
[2023-08-07 04:18] LABS: Basophils % (auto) 0.8 % (0.0-2.0); Eosinophils % (auto) 1.1 % (0.0-7.0); Lymphocytes # (auto) 1.3 10 ^3/uL (0.4-5.4); Lymphocytes % (auto) 16.7 % (10.0-50.0); Mean Corpuscular Hemoglobin 25.6 pg (28.0-32.0); Mean Corpuscular Hgb Conc. 33.5 g/dL (32.0-36.0); Mean Corpuscular Volume 76.6 fL (80.0-100.0); Monocytes % (auto) 10.8 % (0.0-12.0); Neutrophils # (auto) 5.3 10 ^3/uL (1.6-8.6); Neutrophils % (auto) 70.6 % (37.0-80.0); Nucleated Red Blood Cells % 0.4 %
[2023-08-07 04:21] LABS: Red Cell Distribution Width 25.2 % (11.8-14.3)
[2023-08-07 04:23] LABS: Anion Gap 6 (5-15); Calcium 8.4 mg/dL (8.7-10.4); Carbon Dioxide 26 mmol/L (20-30); Chloride 107 mmol/L (98-107); Potassium 3.7 mmol/L (3.5-5.1); Sodium 139 mmol/L (136-145)
[2023-08-07 04:29] LABS: Blood Urea Nitrogen 10 mg/dL (9-23); Glucose 72 mg/dL (74-106)
[2023-08-07 07:01] LABS: Anisocytosis Moderate; Large Platelets FEW; Ovalocytes FEW; Platelet Estimate Adequate; Stomatocytes Few
[2023-08-07] MEDS: FUROSEMIDE 20 MG/2 ML VIAL IV SCH (10:21)
[2023-08-07] MEDS: Glucerna 1.2 Cal 1Liter BOTTLE GT SCH (18:38)
[2023-08-08] VITALS (89 sets, daily range): BP systolic 83–129; BP diastolic 41–64; PULSE 90–105; RESP 14–39; TEMP 96.5–98.1; O2SAT 93–100
[2023-08-08 04:22] LABS: Basophils # (auto) 0.1 10 ^3/uL (0-0.2); Basophils % (auto) 1.1 % (0.0-2.0); Eosinophils # (auto) 0.1 10 ^3/uL (0-0.8); Eosinophils % (auto) 0.7 % (0.0-7.0); Hematocrit 27.8 % (41.0-53.0); Hemoglobin 9.5 g/dL (13.5-17.5); Lymphocytes # (auto) 1.3 10 ^3/uL (0.4-5.4); Lymphocytes % (auto) 17.4 % (10.0-50.0); Mean Corpuscular Hemoglobin 25.8 pg (28.0-32.0); Mean Corpuscular Volume 75.7 fL (80.0-100.0); Monocytes # (auto) 0.6 10 ^3/uL (0-1.3); Monocytes % (auto) 8.5 % (0.0-12.0); Neutrophils # (auto) 5.4 10 ^3/uL (1.6-8.6); Neutrophils % (auto) 72.3 % (37.0-80.0); Nucleated Red Blood Cells % 0.1 %; Red Blood Cells 3.68 10^6/uL (4.5-5.90); White Blood Cell 7.4 10^3/uL (4.4-10.8)
[2023-08-08 04:24] LABS: Anion Gap 6 (5-15); Carbon Dioxide 28 mmol/L (20-30); Chloride 107 mmol/L (98-107); Potassium 3.5 mmol/L (3.5-5.1); Sodium 141 mmol/L (136-145)
[2023-08-08 04:26] LABS: Calcium 8.5 mg/dL (8.7-10.4)
[2023-08-08 04:29] LABS: Red Cell Distribution Width 25.2 % (11.8-14.3)
[2023-08-08 04:30] LABS: Glucose 84 mg/dL (74-106)
[2023-08-08 04:31] LABS: BUN/Creatinine Ratio 29.3 (10.0-20.0); Blood Urea Nitrogen 12 mg/dL (9-23)
[2023-08-08 07:05] LABS: Anisocytosis Moderate; Platelet Estimate Adequate; Stomatocytes Few; Target Cell FEW
[2023-08-09] VITALS (57 sets, daily range): BP systolic 86–121; BP diastolic 34–58; PULSE 84–103; RESP 12–32; TEMP 97.7–98.4; O2SAT 87–100
[2023-08-09 04:08] LABS: Hematocrit 27.5 % (41.0-53.0); Hemoglobin 9.3 g/dL (13.5-17.5); Mean Corpuscular Hemoglobin 26.1 pg (28.0-32.0); Mean Corpuscular Hgb Conc. 33.8 g/dL (32.0-36.0); Mean Corpuscular Volume 77.2 fL (80.0-100.0); Red Blood Cells 3.56 10^6/uL (4.5-5.90); White Blood Cell 7.5 10^3/uL (4.4-10.8)
[2023-08-09 04:17] LABS: Red Cell Distribution Width 25.5 % (11.8-14.3)
[2023-08-09 04:18] LABS: Basophils % (manual) 0 (0.0-2.0); Blast Cells 0; Metamyelocytes % 0; Myelocytes % 0; Promyelocytes % 0; Reactive Lymphocytes 0
[2023-08-09 04:21] LABS: Alanine Aminotransferase 13 U/L (7-40); Alkaline Phosphatase 120 U/L (46-116); Anion Gap 3 (5-15); Aspartate Aminotransferase 23 U/L (13-40); BUN/Creatinine Ratio 21.2 (10.0-20.0); Bilirubin, Total 0.5 mg/dL (0.2-1.0); Blood Urea Nitrogen 11 mg/dL (9-23); Calcium 8.7 mg/dL (8.7-10.4); Carbon Dioxide 32 mmol/L (20-30); Chloride 108 mmol/L (98-107); Glucose 100 mg/dL (74-106); Potassium 3.4 mmol/L (3.5-5.1); Sodium 143 mmol/L (136-145); Total Protein 4.6 g/dL (5.7-8.2)
[2023-08-09] MEDS: POTASSIUM CHL 20MEQ/100ML 100 ML IV ONE (06:47)
[2023-08-09 07:00] LABS: Anisocytosis Moderate; Band Neutrophils % (manual) 5; Eosinophils % (manual) 2 (0-7); Lymphocytes % (manual) 19 (10.0-50.0); Monocytes % (manual) 7 (0-12); Ovalocytes FEW; Platelet Estimate Adequate; Stomatocytes Few
[2023-08-09] MEDS: cefTRIAXone 1GM/50ML D5W 50 ML IV SCH (09:30)
[2023-08-10] VITALS (41 sets, daily range): BP systolic 89–128; BP diastolic 40–62; PULSE 88–106; RESP 15–34; TEMP 97.7–98.8; O2SAT 88–100
[2023-08-10 03:50] LABS: Basophils # (auto) 0.1 10 ^3/uL (0-0.2); Eosinophils # (auto) 0.1 10 ^3/uL (0-0.8); Mean Corpuscular Hemoglobin 26.5 pg (28.0-32.0); Monocytes # (auto) 0.6 10 ^3/uL (0-1.3); Monocytes % (auto) 9.3 % (0.0-12.0)
[2023-08-10 03:52] LABS: Basophils % (auto) 1.9 % (0.0-2.0); Eosinophils % (auto) 1.4 % (0.0-7.0); Hematocrit 28.7 % (41.0-53.0); Hemoglobin 9.4 g/dL (13.5-17.5); Lymphocytes # (auto) 1.5 10 ^3/uL (0.4-5.4); Lymphocytes % (auto) 24.2 % (10.0-50.0); Mean Corpuscular Hgb Conc. 32.8 g/dL (32.0-36.0); Mean Corpuscular Volume 80.8 fL (80.0-100.0); Neutrophils % (auto) 63.2 % (37.0-80.0); Nucleated Red Blood Cells % 0.5 %; Red Blood Cells 3.55 10^6/uL (4.5-5.90); White Blood Cell 6.3 10^3/uL (4.4-10.8)
[2023-08-10 03:57] LABS: Red Cell Distribution Width 26.2 % (11.8-14.3)
[2023-08-10 04:02] LABS: Alanine Aminotransferase 10 U/L (7-40); Albumin 1.9 g/dL (3.2-4.8); Alkaline Phosphatase 113 U/L (46-116); Anion Gap 2 (5-15); Aspartate Aminotransferase 22 U/L (13-40); BUN/Creatinine Ratio 15.1 (10.0-20.0); Blood Urea Nitrogen 8 mg/dL (9-23); Calcium 8.9 mg/dL (8.7-10.4); Carbon Dioxide 32 mmol/L (20-30); Chloride 109 mmol/L (98-107); Glucose 136 mg/dL (74-106); Magnesium 1.4 mg/dL (1.6-2.6); Potassium 4.2 mmol/L (3.5-5.1); Sodium 143 mmol/L (136-145)
[2023-08-10 04:03] LABS: Bilirubin, Total 0.4 mg/dL (0.2-1.0); Total Protein 4.6 g/dL (5.7-8.2)
[2023-08-10 04:47] LABS: Anisocytosis Moderate; Ovalocytes FEW; Platelet Estimate Adequate; Stomatocytes Few
[2023-08-10] MEDS: MAGNESIUM SULFATE 1GM/100ML 100 ML IV ONE (08:33)
[2023-08-10] MEDS: FLUCONAZOLE 100 MG TAB PO SCH (10:08)
[2023-08-11] VITALS (37 sets, daily range): BP systolic 91–117; BP diastolic 24–85; PULSE 17–99; RESP 12–97; TEMP 97.5–98.4; O2SAT 94–100
[2023-08-11 04:20] LABS: Basophils # (auto) 0.1 10 ^3/uL (0-0.2); Eosinophils # (auto) 0.2 10 ^3/uL (0-0.8); Monocytes # (auto) 0.9 10 ^3/uL (0-1.3); Neutrophils # (auto) 5.8 10 ^3/uL (1.6-8.6); White Blood Cell 8.7 10^3/uL (4.4-10.8)
[2023-08-11 04:27] LABS: Basophils % (auto) 1.4 % (0.0-2.0); Hematocrit 28.4 % (41.0-53.0); Hemoglobin 9.5 g/dL (13.5-17.5); Lymphocytes # (auto) 1.8 10 ^3/uL (0.4-5.4); Lymphocytes % (auto) 20.6 % (10.0-50.0); Mean Corpuscular Hemoglobin 26.3 pg (28.0-32.0); Mean Corpuscular Hgb Conc. 33.4 g/dL (32.0-36.0); Mean Corpuscular Volume 78.7 fL (80.0-100.0); Monocytes % (auto) 10.1 % (0.0-12.0); Neutrophils % (auto) 65.9 % (37.0-80.0); Nucleated Red Blood Cells % 0.7 %; Red Blood Cells 3.61 10^6/uL (4.5-5.90)
[2023-08-11 04:40] LABS: Alanine Aminotransferase 11 U/L (7-40); Alkaline Phosphatase 120 U/L (46-116); BUN/Creatinine Ratio 22.2 (10.0-20.0); Blood Urea Nitrogen 14 mg/dL (9-23); Calcium 9.2 mg/dL (8.7-10.4); Chloride 106 mmol/L (98-107); Magnesium 1.6 mg/dL (1.6-2.6); Potassium 4.7 mmol/L (3.5-5.1); Sodium 145 mmol/L (136-145)
[2023-08-11 04:41] LABS: Aspartate Aminotransferase 20 U/L (13-40)
[2023-08-11 04:42] LABS: Bilirubin, Total 0.3 mg/dL (0.2-1.0); Total Protein 4.8 g/dL (5.7-8.2)
[2023-08-11 04:43] LABS: Red Cell Distribution Width 25.4 % (11.8-14.3)
[2023-08-11 04:56] LABS: Glucose 114 mg/dL (74-106)
[2023-08-11 05:43] LABS: Anion Gap 3 (5-15); Carbon Dioxide 36 mmol/L (20-30)
[2023-08-12] VITALS (27 sets, daily range): BP systolic 96–107; BP diastolic 51–53; PULSE 78–100; RESP 16–20; TEMP 97.8–98; O2SAT 92–100
[2023-08-12] MEDS ORDERED: DEXTROSE (50%) 50ML SYRG IV SCH (20:00)
[2023-08-12] MEDS: AMINO ACID INFUSION IN D10W 1,000 ML IV SCH (20:38)
[2023-08-12] MEDS: ACCU-CHEK COMFORT CURVE STRIP VI SCH (23:04)
[2023-08-12] MEDS: InsuLIN REG 1unit/0.01ml Soln (100units/ml) SC SCH (23:05)
[2023-08-13] VITALS (24 sets, daily range): BP systolic 12–114; BP diastolic 54–61; PULSE 68–99; RESP 16–24; TEMP 97.6–98.5; O2SAT 91–100
[2023-08-13 06:26] LABS: Basophils # (auto) 0.1 10 ^3/uL (0-0.2); Basophils % (auto) 1.5 % (0.0-2.0); Eosinophils # (auto) 0.2 10 ^3/uL (0-0.8); Hematocrit 29.1 % (41.0-53.0); Hemoglobin 9.5 g/dL (13.5-17.5); Lymphocytes # (auto) 1.9 10 ^3/uL (0.4-5.4); Lymphocytes % (auto) 20.5 % (10.0-50.0); Mean Corpuscular Hemoglobin 26.2 pg (28.0-32.0); Mean Corpuscular Hgb Conc. 32.8 g/dL (32.0-36.0); Mean Corpuscular Volume 79.8 fL (80.0-100.0); Monocytes # (auto) 0.9 10 ^3/uL (0-1.3); Nucleated Red Blood Cells % 0.4 %; Red Blood Cells 3.65 10^6/uL (4.5-5.90); Red Cell Distribution Width 25.9 % (11.8-14.3); White Blood Cell 9.1 10^3/uL (4.4-10.8)
[2023-08-13 06:32] LABS: Chloride 107 mmol/L (98-107); Potassium 3.8 mmol/L (3.5-5.1); Sodium 144 mmol/L (136-145)
[2023-08-13 06:33] LABS: Anion Gap 2 (5-15); Calcium 8.8 mg/dL (8.7-10.4); Carbon Dioxide 35 mmol/L (20-30)
[2023-08-13 06:38] LABS: BUN/Creatinine Ratio 26.9 (10.0-20.0); Blood Urea Nitrogen 18 mg/dL (9-23); Glucose 178 mg/dL (74-106)
[2023-08-13 06:39] LABS: Magnesium 1.5 mg/dL (1.6-2.6)
[2023-08-13 06:40] LABS: Phosphorus 3.2 mg/dL (2.4-5.1)
[2023-08-13 07:57] LABS: Anisocytosis Moderate
[2023-08-13 07:58] LABS: Platelet Estimate Adequate
[2023-08-13] MEDS: MAGNESIUM SULFATE 1GM/100ML 100 ML IV ONE (16:02)
[2023-08-14] VITALS (26 sets, daily range): BP systolic 93–101; BP diastolic 42–64; PULSE 83–103; RESP 14–26; TEMP 98–98.8; O2SAT 93–100
[2023-08-14 06:22] LABS: Basophils # (auto) 0.1 10 ^3/uL (0-0.2); Eosinophils # (auto) 0.2 10 ^3/uL (0-0.8); Eosinophils % (auto) 1.7 % (0.0-7.0); Hemoglobin 9.1 g/dL (13.5-17.5); White Blood Cell 9.8 10^3/uL (4.4-10.8)
[2023-08-14 06:26] LABS: Hematocrit 28.5 % (41.0-53.0); Lymphocytes # (auto) 1.5 10 ^3/uL (0.4-5.4); Lymphocytes % (auto) 15.5 % (10.0-50.0); Mean Corpuscular Hemoglobin 26.2 pg (28.0-32.0); Mean Corpuscular Hgb Conc. 31.8 g/dL (32.0-36.0); Mean Corpuscular Volume 82.4 fL (80.0-100.0); Monocytes # (auto) 1.1 10 ^3/uL (0-1.3); Neutrophils # (auto) 6.9 10 ^3/uL (1.6-8.6); Neutrophils % (auto) 70.8 % (37.0-80.0); Nucleated Red Blood Cells % 0.2 %; Red Blood Cells 3.46 10^6/uL (4.5-5.90)
[2023-08-14 06:39] LABS: Red Cell Distribution Width 26.3 % (11.8-14.3)
[2023-08-14 06:44] LABS: Albumin 1.9 g/dL (3.2-4.8); Alkaline Phosphatase 94 U/L (46-116); Anion Gap 0 (5-15); Aspartate Aminotransferase 16 U/L (13-40); Blood Urea Nitrogen 18 mg/dL (9-23); Calcium 8.9 mg/dL (8.7-10.4); Carbon Dioxide 35 mmol/L (20-30); Chloride 107 mmol/L (98-107); Glucose 143 mg/dL (74-106); Magnesium 1.6 mg/dL (1.6-2.6); Potassium 3.1 mmol/L (3.5-5.1); Sodium 142 mmol/L (136-145)
[2023-08-14 06:45] LABS: Bilirubin, Total 0.4 mg/dL (0.2-1.0); Total Protein 4.8 g/dL (5.7-8.2)
[2023-08-14 06:49] LABS: Alanine Aminotransferase < 9 U/L (7-40)
[2023-08-14 07:10] LABS: Anisocytosis Moderate; Platelet Estimate Adequate
[2023-08-14] MEDS: POTASSIUM CHL 20MEQ/100ML 100 ML IV SCH (09:48)
[2023-08-14] MEDS ORDERED: CLINIMIX PER PHARMACY 0 ML IV SCH (10:00)
[2023-08-14] MEDS: POTASSIUM PHOSPHATE 22 MEQ in SODIUM CHL 0.9% 100 ML IV ONE (10:32)
[2023-08-14] MEDS: FUROSEMIDE 20 MG/2 ML VIAL IV ONE (17:16)
[2023-08-14] MEDS ORDERED: Glucerna 1.2 Cal 1Liter BOTTLE GT SCH (18:30)
[2023-08-14] MEDS: ENOXAPARIN SOD 80 MG/0.8ML SYRINGE SC SCH (21:52)
[2023-08-15] VITALS (21 sets, daily range): BP systolic 87–98; BP diastolic 41–52; PULSE 74–96; RESP 16–93; TEMP 97.7–98; O2SAT 93–100
[2023-08-15 06:38] LABS: Basophils # (auto) 0.1 10 ^3/uL (0-0.2); Eosinophils # (auto) 0.1 10 ^3/uL (0-0.8); Eosinophils % (auto) 0.5 % (0.0-7.0); Lymphocytes # (auto) 1.3 10 ^3/uL (0.4-5.4); Lymphocytes % (auto) 10.5 % (10.0-50.0)
[2023-08-15 06:41] LABS: Basophils % (auto) 0.9 % (0.0-2.0); Hematocrit 27.5 % (41.0-53.0); Hemoglobin 8.8 g/dL (13.5-17.5); Mean Corpuscular Hemoglobin 26.5 pg (28.0-32.0); Monocytes # (auto) 1.3 10 ^3/uL (0-1.3); Monocytes % (auto) 11.2 % (0.0-12.0); Neutrophils # (auto) 9.2 10 ^3/uL (1.6-8.6); Neutrophils % (auto) 76.9 % (37.0-80.0); Nucleated Red Blood Cells % 0.3 %; Red Blood Cells 3.32 10^6/uL (4.5-5.90)
[2023-08-15 06:52] LABS: Albumin 1.9 g/dL (3.2-4.8); Alkaline Phosphatase 91 U/L (46-116); Anion Gap 2 (5-15); Aspartate Aminotransferase 15 U/L (13-40); BUN/Creatinine Ratio 26.6 (10.0-20.0); Blood Urea Nitrogen 17 mg/dL (9-23); Calcium 8.6 mg/dL (8.7-10.4); Carbon Dioxide 31 mmol/L (20-30); Chloride 107 mmol/L (98-107); Glucose 185 mg/dL (74-106); Sodium 140 mmol/L (136-145)
[2023-08-15 06:53] LABS: Bilirubin, Total 0.4 mg/dL (0.2-1.0); Phosphorus 2.5 mg/dL (2.4-5.1); Total Protein 4.8 g/dL (5.7-8.2)
[2023-08-15 06:59] LABS: Magnesium 1.4 mg/dL (1.6-2.6)
[2023-08-15 07:05] LABS: Alanine Aminotransferase < 9 U/L (7-40)
[2023-08-15 07:07] LABS: Red Cell Distribution Width 26.4 % (11.8-14.3)
[2023-08-15 11:57] LABS: Base Excess 2.7 mmol/L (-2.0-2.0)
[2023-08-15] MEDS: FLUCONAZOLE 200MG/100ML 100 ML IV SCH (11:58)
[2023-08-15 16:37] LABS: Base Excess 6.9 mmol/L (-2.0-2.0)
[2023-08-15 21:14] LABS: Cholesterol 70 mg/dL (< 200); Folate (Folic Acid) 15.8 ng/mL (>5.38); Free T4 (Free Thyroxine) 1.36 ng/dL (0.89-1.76); HDL Cholesterol 19 mg/dL (40-59); LDL Cholesterol 36 mg/dL (< 100); Triglycerides 135 mg/dL (< 150)
[2023-08-16] VITALS (17 sets, daily range): BP systolic 84–106; BP diastolic 37–78; PULSE 73–98; RESP 16–22; TEMP 97.3–98.8; O2SAT 95–100
[2023-08-16 05:14] LABS: Hemoglobin 7.9 g/dL (13.5-17.5)
[2023-08-16 05:15] LABS: Hematocrit 23.7 % (41.0-53.0); Mean Corpuscular Hemoglobin 27.2 pg (28.0-32.0); Mean Corpuscular Hgb Conc. 33.2 g/dL (32.0-36.0); Red Blood Cells 2.89 10^6/uL (4.5-5.90); White Blood Cell 7.9 10^3/uL (4.4-10.8)
[2023-08-16 05:19] LABS: Albumin 1.9 g/dL (3.2-4.8); Alkaline Phosphatase 84 U/L (46-116); Anion Gap 1 (5-15); Aspartate Aminotransferase 12 U/L (13-40); BUN/Creatinine Ratio 39.6 (10.0-20.0); Bilirubin, Total 0.3 mg/dL (0.2-1.0); Blood Urea Nitrogen 19 mg/dL (9-23); Calcium 8.7 mg/dL (8.7-10.4); Carbon Dioxide 32 mmol/L (20-30); Chloride 108 mmol/L (98-107); Glucose 90 mg/dL (74-106); Magnesium 1.4 mg/dL (1.6-2.6); Phosphorus 2.6 mg/dL (2.4-5.1); Potassium 3.4 mmol/L (3.5-5.1); Sodium 141 mmol/L (136-145); Total Protein 4.6 g/dL (5.7-8.2)
[2023-08-16 05:23] LABS: Basophils % (manual) 0 (0.0-2.0); Blast Cells 0; Metamyelocytes % 0; Promyelocytes % 0; Reactive Lymphocytes 0; Red Cell Distribution Width 26.1 % (11.8-14.3)
[2023-08-16 05:24] LABS: Alanine Aminotransferase < 9 U/L (7-40)
[2023-08-16] MEDS: MAGNESIUM SULFATE 1GM/100ML 100 ML IV ONE (06:57)
[2023-08-16 07:05] LABS: Anisocytosis Moderate; Band Neutrophils % (manual) 2; Eosinophils % (manual) 5 (0-7); Lymphocytes % (manual) 19 (10.0-50.0); Monocytes % (manual) 9 (0-12); Myelocytes % 1; Platelet Estimate Adequate
[2023-08-16 07:06] LABS: Large Platelets FEW; Ovalocytes FEW
[2023-08-16] MEDS: POTASSIUM CHL 20MEQ/100ML 100 ML IV ONE (08:49)
[2023-08-16] MEDS ORDERED: CLINIMIX PER PHARMACY 0 ML IV SCH (10:45)
[2023-08-16] MEDS: AMINO ACID INFUSION IN D10W 1,000 ML IV SCH (20:32)
[2023-08-16] MEDS: NYSTATIN (MOUTH-THROAT) 500,000 UNITS/5 ML SUSP MT SCH (22:10)
[2023-08-17] VITALS (16 sets, daily range): BP systolic 86–113; BP diastolic 51–60; PULSE 69–89; RESP 18–21; TEMP 97.9–98.7; O2SAT 92–100
[2023-08-17 06:26] LABS: Hematocrit 23.6 % (41.0-53.0); Hemoglobin 7.9 g/dL (13.5-17.5); Mean Corpuscular Hemoglobin 27.9 pg (28.0-32.0); Mean Corpuscular Hgb Conc. 33.7 g/dL (32.0-36.0); Mean Corpuscular Volume 82.8 fL (80.0-100.0); Red Blood Cells 2.85 10^6/uL (4.5-5.90); White Blood Cell 9.6 10^3/uL (4.4-10.8)
[2023-08-17 06:41] LABS: Red Cell Distribution Width 27.3 % (11.8-14.3)
[2023-08-17 06:43] LABS: Band Neutrophils % (manual) 0; Basophils % (manual) 0 (0.0-2.0); Blast Cells 0; Eosinophils % (manual) 0 (0-7); Metamyelocytes % 0; Myelocytes % 0; Promyelocytes % 0; Reactive Lymphocytes 0
[2023-08-17 06:45] LABS: Alkaline Phosphatase 93 U/L (46-116); Anion Gap 4 (5-15); Aspartate Aminotransferase 21 U/L (13-40); BUN/Creatinine Ratio 36.7 (10.0-20.0); Bilirubin, Total 0.3 mg/dL (0.2-1.0); Blood Urea Nitrogen 18 mg/dL (9-23); Calcium 9.1 mg/dL (8.5-10.1); Carbon Dioxide 29 mmol/L (20-30); Chloride 109 mmol/L (98-107); Glucose 140 mg/dL (74-106); Phosphorus 2.6 mg/dL (2.4-5.1); Potassium 3.9 mmol/L (3.5-5.1); Sodium 142 mmol/L (136-145); Total Protein 4.9 g/dL (5.7-8.2)
[2023-08-17 06:51] LABS: Alanine Aminotransferase < 9 U/L (7-40)
[2023-08-17 07:36] LABS: Magnesium 1.7 mg/dL (1.6-2.6)
[2023-08-17 07:58] LABS: Lymphocytes % (manual) 19 (10.0-50.0); Monocytes % (manual) 5 (0-12)
[2023-08-17 07:59] LABS: Anisocytosis Slight; Platelet Estimate Adequa
[2023-08-18] VITALS (15 sets, daily range): BP systolic 99–115; BP diastolic 45–73; PULSE 62–84; RESP 16–21; TEMP 97.7–98.3; O2SAT 92–100
[2023-08-18 06:48] LABS: Basophils # (auto) 0.1 10 ^3/uL (0-0.2); Eosinophils # (auto) 0.2 10 ^3/uL (0-0.8); Hemoglobin 7.4 g/dL (13.5-17.5); Mean Corpuscular Hemoglobin 27.5 pg (28.0-32.0); Mean Corpuscular Hgb Conc. 33.2 g/dL (32.0-36.0); Mean Corpuscular Volume 82.9 fL (80.0-100.0); Monocytes # (auto) 0.8 10 ^3/uL (0-1.3); Monocytes % (auto) 9.8 % (0.0-12.0); Neutrophils # (auto) 6.3 10 ^3/uL (1.6-8.6); Red Blood Cells 2.68 10^6/uL (4.5-5.90)
[2023-08-18 06:51] LABS: Basophils % (auto) 1.1 % (0.0-2.0); Eosinophils % (auto) 2.5 % (0.0-7.0); Hematocrit 22.2 % (41.0-53.0); Lymphocytes # (auto) 1.1 10 ^3/uL (0.4-5.4); Lymphocytes % (auto) 12.7 % (10.0-50.0); Neutrophils % (auto) 73.9 % (37.0-80.0); Nucleated Red Blood Cells % 0.3 %; White Blood Cell 8.5 10^3/uL (4.4-10.8)
[2023-08-18 07:07] LABS: Alkaline Phosphatase 83 U/L (46-116); Anion Gap 2 (5-15); Aspartate Aminotransferase 11 U/L (13-40); BUN/Creatinine Ratio 37.3 (10.0-20.0); Blood Urea Nitrogen 19 mg/dL (9-23); Calcium 8.7 mg/dL (8.7-10.4); Carbon Dioxide 30 mmol/L (20-30); Chloride 106 mmol/L (98-107); GFR African American 207 mL/min; GFR Non-African American 171 mL/min; Magnesium 1.4 mg/dL (1.6-2.6); Potassium 3.1 mmol/L (3.5-5.1); Sodium 138 mmol/L (136-145)
[2023-08-18 07:08] LABS: Albumin 1.9 g/dL (3.2-4.8); Bilirubin, Total 0.3 mg/dL (0.2-1.0); Phosphorus 2.1 mg/dL (2.4-5.1); Total Protein 4.6 g/dL (5.7-8.2)
[2023-08-18 07:09] LABS: Alanine Aminotransferase < 9 U/L (7-40); Glucose 341 mg/dL (74-106)
[2023-08-18 07:36] LABS: Red Cell Distribution Width 27.3 % (11.8-14.3)
[2023-08-18] MEDS: ceFAZolin 1GM/50ML 50 ML IV ONE (11:30)
[2023-08-18] MEDS ORDERED: PROPOFOL 10 MG/ML 20 ML IV ONE (13:33)
[2023-08-18] MEDS ORDERED: fentaNYL CITRATE 100 MCG/2 ML VL ONE (13:39)
[2023-08-18] MEDS ORDERED: ONDANSETRON HCL 4 MG/2 ML VIAL IV PRN (14:15)
[2023-08-18] MEDS: POTASSIUM CHL 20MEQ/100ML 100 ML IV ONE (18:16)
[2023-08-18] MEDS: MAGNESIUM SULFATE 1GM/100ML 100 ML IV ONE (18:17)
[2023-08-18] MEDS: POTASSIUM PHOSPHATE 22 MEQ in SODIUM CHL 0.9% 100 ML IV ONE (18:36)
[2023-08-19] VITALS (14 sets, daily range): BP systolic 95–135; BP diastolic 47–60; PULSE 77–92; RESP 16–20; TEMP 97.9–98.3; O2SAT 95–100
[2023-08-19] MEDS ORDERED: ENSURE CLEAR Apple 8oz Carton PO SCH (06:00)
[2023-08-19 06:39] LABS: Alkaline Phosphatase 83 U/L (46-116); Anion Gap 5 (5-15); BUN/Creatinine Ratio 31.7 (10.0-20.0); Blood Urea Nitrogen 13 mg/dL (9-23); Calcium 8.8 mg/dL (8.7-10.4); Carbon Dioxide 26 mmol/L (20-30); Chloride 109 mmol/L (98-107); GFR African American 267 mL/min; GFR Non-African American 220 mL/min; Magnesium 1.5 mg/dL (1.6-2.6); Potassium 3.8 mmol/L (3.5-5.1); Sodium 140 mmol/L (136-145)
[2023-08-19 06:40] LABS: Albumin 1.9 g/dL (3.2-4.8); Aspartate Aminotransferase 13 U/L (13-40)
[2023-08-19 06:41] LABS: Bilirubin, Total 0.3 mg/dL (0.2-1.0); Phosphorus 3.2 mg/dL (2.4-5.1); Total Protein 4.8 g/dL (5.7-8.2)
[2023-08-19 06:44] LABS: Alanine Aminotransferase < 9 U/L (7-40); Glucose 152 mg/dL (74-106)
[2023-08-19] MEDS: ENSURE CLEAR Apple 8oz Carton PEG SCH (06:45)
[2023-08-19 06:46] LABS: INR 1.3 (0.9-1.15); Prothrombin Time 13.4 sec (9.3-11.8)
[2023-08-19 06:50] LABS: Basophils # (auto) 0.1 10 ^3/uL (0-0.2); Basophils % (auto) 0.8 % (0.0-2.0); Eosinophils # (auto) 0.1 10 ^3/uL (0-0.8); Eosinophils % (auto) 1.2 % (0.0-7.0); Hemoglobin 7.6 g/dL (13.5-17.5); Lymphocytes # (auto) 1.1 10 ^3/uL (0.4-5.4); Mean Corpuscular Hgb Conc. 28.1 g/dL (32.0-36.0); Mean Corpuscular Volume 92.6 fL (80.0-100.0); Monocytes % (auto) 8.7 % (0.0-12.0); Neutrophils # (auto) 8.8 10 ^3/uL (1.6-8.6); Neutrophils % (auto) 79.3 % (37.0-80.0); Nucleated Red Blood Cells % 0.4 %; Red Blood Cells 2.91 10^6/uL (4.5-5.90); White Blood Cell 11.1 10^3/uL (4.4-10.8)
[2023-08-19 06:58] LABS: Red Cell Distribution Width 29.3 % (11.8-14.3)
[2023-08-19] MEDS: POTASSIUM CHL 20MEQ/100ML 100 ML IV SCH (10:58)
[2023-08-19] MEDS: MAGNESIUM SULFATE 1GM/100ML 100 ML IV ONE (11:16)
[2023-08-19] MEDS: MAGNESIUM SULFATE 1GM/100ML 100 ML IV SCH (13:49)
[2023-08-20] VITALS (17 sets, daily range): BP systolic 105–126; BP diastolic 41–57; PULSE 71–97; RESP 12–20; TEMP 97.4–98.5; O2SAT 92–100
[2023-08-20 07:24] LABS: Hemoglobin 7.7 g/dL (13.5-17.5); Red Blood Cells 2.79 10^6/uL (4.5-5.90)
[2023-08-20 07:27] LABS: Hematocrit 23.6 % (41.0-53.0); Mean Corpuscular Hemoglobin 27.7 pg (28.0-32.0); Mean Corpuscular Hgb Conc. 32.6 g/dL (32.0-36.0); Mean Corpuscular Volume 84.8 fL (80.0-100.0); White Blood Cell 11.5 10^3/uL (4.4-10.8)
[2023-08-20 07:36] LABS: Anion Gap 3 (5-15); Carbon Dioxide 27 mmol/L (20-30); Chloride 106 mmol/L (98-107); Potassium 3.9 mmol/L (3.5-5.1); Sodium 136 mmol/L (136-145)
[2023-08-20 07:37] LABS: Calcium 8.9 mg/dL (8.7-10.4)
[2023-08-20 07:41] LABS: Glucose 229 mg/dL (74-106)
[2023-08-20 07:42] LABS: BUN/Creatinine Ratio 36.4 (10.0-20.0); Blood Urea Nitrogen 16 mg/dL (9-23); Magnesium 1.8 mg/dL (1.6-2.6)
[2023-08-20 07:44] LABS: Phosphorus 3.7 mg/dL (2.4-5.1)
[2023-08-20 07:47] LABS: Red Cell Distribution Width 27.1 % (11.8-14.3)
[2023-08-20 07:49] LABS: Basophils % (manual) 0 (0.0-2.0); Blast Cells 0; Metamyelocytes % 0; Promyelocytes % 0; Reactive Lymphocytes 0
[2023-08-20 14:50] LABS: Band Neutrophils % (manual) 8; Eosinophils % (manual) 1 (0-7); Lymphocytes % (manual) 14 (10.0-50.0); Monocytes % (manual) 8 (0-12); Myelocytes % 1
[2023-08-20 14:51] LABS: Platelet Estimate Adequate
[2023-08-20] MEDS: MAGNESIUM SULFATE 1GM/100ML 100 ML IV ONE (17:13)
[2023-08-20] MEDS: METOCLOPRAMIDE HCL 5MG/ml INJ 2ml VIAL IV PRN (17:19)
[2023-08-21] VITALS (12 sets, daily range): BP systolic 109–144; BP diastolic 44–60; PULSE 72–89; RESP 12–20; TEMP 36.7; O2SAT 94–100
[2023-08-21 06:14] LABS: Hematocrit 22.9 % (41.0-53.0)
[2023-08-21 06:17] LABS: Hemoglobin 7.5 g/dL (13.5-17.5); Mean Corpuscular Hemoglobin 27.9 pg (28.0-32.0); Mean Corpuscular Hgb Conc. 32.8 g/dL (32.0-36.0); Mean Corpuscular Volume 84.9 fL (80.0-100.0); White Blood Cell 9.1 10^3/uL (4.4-10.8)
[2023-08-21 06:37] LABS: Red Cell Distribution Width 27.3 % (11.8-14.3)
[2023-08-21 06:38] LABS: Basophils % (manual) 0 (0.0-2.0); Blast Cells 0; Reactive Lymphocytes 0
[2023-08-21 06:50] LABS: Chloride 102 mmol/L (98-107); Potassium 3.3 mmol/L (3.5-5.1); Sodium 132 mmol/L (136-145)
[2023-08-21 06:51] LABS: Anion Gap 7 (5-15); Calcium 8.7 mg/dL (8.7-10.4); Carbon Dioxide 23 mmol/L (20-30)
[2023-08-21 06:56] LABS: BUN/Creatinine Ratio 33.3 (10.0-20.0); Blood Urea Nitrogen 14 mg/dL (9-23); GFR African American 259 mL/min; GFR Non-African American 214 mL/min; Glucose 282 mg/dL (74-106)
[2023-08-21 06:57] LABS: Albumin 1.9 g/dL (3.2-4.8); Magnesium 1.7 mg/dL (1.6-2.6)
[2023-08-21 06:58] LABS: Phosphorus 3.8 mg/dL (2.4-5.1)
[2023-08-21 09:29] LABS: Band Neutrophils % (manual) 4; Eosinophils % (manual) 2 (0-7); Lymphocytes % (manual) 9 (10.0-50.0); Metamyelocytes % 2; Monocytes % (manual) 6 (0-12); Myelocytes % 2; Promyelocytes % 2
[2023-08-21 09:30] LABS: Platelet Estimate Adequate
[2023-08-21] MEDS: POTASSIUM CHL 20MEQ/100ML 100 ML IV ONE (10:15)
[2023-08-21] MEDS: MAGNESIUM SULFATE 1GM/100ML 100 ML IV SCH (12:36)
[2023-08-21] MEDS ORDERED: APIX5TAB PO (12:57)
[2023-08-21] MEDS ORDERED: NUTR1LIQ PO (16:12)
[2023-08-21] MEDS: MAGNESIUM SULFATE 1GM/100ML 100 ML IV ONE (18:13)
== END 2023-08-21 19:15 | disposition home health service (06) | DRG 870 ==
LOC: ER 04:53 → EDBD 04:53 → TELE 06:41 → ICU CENTRL 13:16 → ICU WEST 07-29 19:18 → TELE-EAST 08-11 15:37
PROVIDERS: ADMIT Internal Medicine Pulmonary Disease; ATTEND Emergency Medicine
PROC: 5A1955Z Respiratory Ventilation, Greater than 96 Consecutive Hours (ICD-10-PCS; principal; 2023-07-27)
PROC: 0BH17EZ Insertion of Endotracheal Airway into Trachea, Via Natural or Artificial Opening (ICD-10-PCS; 2023-07-27)
PROC: 02HV33Z Insertion of Infusion Device into Superior Vena Cava, Percutaneous Approach (ICD-10-PCS; 2023-07-27)
PROC: 5A09357 Assistance with Respiratory Ventilation, Less than 24 Consecutive Hours, Continuous Positive Airway Pressure (ICD-10-PCS; 2023-07-27)
PROC: 0DH63UZ Insertion of Feeding Device into Stomach, Percutaneous Approach (ICD-10-PCS; 2023-08-18)
DX: A41.9 Sepsis, unspecified organism (principal); J96.01 Acute respiratory failure with hypoxia; J96.02 Acute respiratory failure with hypercapnia; R65.21 Severe sepsis with septic shock; E43 Unspecified severe protein-calorie malnutrition; G03.9 Meningitis, unspecified; G92.8 Other toxic encephalopathy; J10.00 Influenza due to other identified influenza virus with unspecified type of pneumonia; T83.511A Infection and inflammatory reaction due to indwelling urethral catheter, initial encounter; E87.21 Acute metabolic acidosis; G82.20 Paraplegia, unspecified; N17.9 Acute kidney failure, unspecified; E87.4 Mixed disorder of acid-base balance; I82.401 Acute embolism and thrombosis of unspecified deep veins of right lower extremity; I82.621 Acute embolism and thrombosis of deep veins of right upper extremity; I13.0 Hypertensive heart and chronic kidney disease with heart failure and stage 1 through stage 4 chronic kidney disease, or unspecified chronic kidney disease; Z68.1 Body mass index [BMI] 19.9 or less, adult; D64.9 Anemia, unspecified; E11.65 Type 2 diabetes mellitus with hyperglycemia; F32.A Depression, unspecified; L89.90 Pressure ulcer of unspecified site, unspecified stage; N18.9 Chronic kidney disease, unspecified; D50.9 Iron deficiency anemia, unspecified; E87.5 Hyperkalemia; L89.159 Pressure ulcer of sacral region, unspecified stage; N30.90 Cystitis, unspecified without hematuria; K44.9 Diaphragmatic hernia without obstruction or gangrene; G91.4 Hydrocephalus in diseases classified elsewhere; Z20.822 Contact with and (suspected) exposure to COVID-19; E86.0 Dehydration; I48.91 Unspecified atrial fibrillation; E11.22 Type 2 diabetes mellitus with diabetic chronic kidney disease; I50.810 Right heart failure, unspecified; Z93.3 Colostomy status; Z86.11 Personal history of tuberculosis; Z88.8 Allergy status to other drugs, medicaments and biological substances; Z79.899 Other long term (current) drug therapy; Z88.0 Allergy status to penicillin; Z80.42 Family history of malignant neoplasm of prostate; Z98.2 Presence of cerebrospinal fluid drainage device; Z85.46 Personal history of malignant neoplasm of prostate; Z79.84 Long term (current) use of oral hypoglycemic drugs; Z86.73 Personal history of transient ischemic attack (TIA), and cerebral infarction without residual deficits; Z87.440 Personal history of urinary (tract) infections; Z86.61 Personal history of infections of the central nervous system; Z93.59 Other cystostomy status
CPT/HCPCS: 36415; 36569; 36600; 43246; 70450; 70551; 71045; 80048; 80053; 80061; 80069; 80202; 81001; 82607; 82746; 82805; 82962; 83036; 83605; 83735; 83880; 84100; 84439; 84443; 84484; 85007; 85025; 85027; 85610; 85730; 87040; 87070; 87077; 87081; 87086; 87088; 87205; 87426; 87804; 92507; 92610; 93005; 93306; 93970; 94002; 94003; 94640; 94660; 95819; 97110; 97163; 97530; 99291; C9113; G0378; J0330; J0696; J1450; J1815; J2001; J2185; J2250; J2704; J3480; J7060